=== PATIENT | male | born 1945 | race Caucasian/White ===

== ENCOUNTER 2019-02-28 14:49 | Emergency (ER) | payer MEDICARE ==
[~2019-02-28] VITALS: Ht 167.6 cm; Wt 89.4 kg
--- OUTSIDE RECORDS SUMMARY | ~2019-02-28 | XMS | Clinical Summary ---
Demographics + + + | Address | [address] | | | [place] [address] | + + + | Home Phone | | + + + | Preferred Language | Unknown | + + + | Marital Status | | + + + | Judaism Affiliation | Unknown | + + + | Race | Unknown | + + + | Ethnic Group | Unknown | + + + Author + + + | Author | [facility] | + + + | Organization | [facility] | + + + | Address | Unknown | + + + | Phone | Unavailable | + + + Support + + +---------+ + | Name | Relationship | Address | Phone | + + +---------+ + | Tenisha Shetty | ECON | Unknown | | + + +---------+ + Care Team Providers + +------+ + | Care Field Identification Specialist Name | Role | Phone | + +------+ + | Radhames Constantino MD | PP | Unavailable | + +------+ + Allergies + + + + + + | Active Allergy | Reactions | Severity | Noted | Comments | | | | | Date | | + + + + + + | Atorvastatin | Vertigo | Medium | 01/07/20 | Dizziness and leg | | | | | 15 | cramps | + + + + + + | Adhesive Tape | Other (See Comments) | High | 08/10/20 | Blisters with | | | | | 13 | surgical tape | + + + + + + Current Medications + + +-------+---------+------+------+-------+ | Prescription | Sig. | Disp. | Refills | Star | End | Statu | | | | | | t | Date | s | | | | | | Date | | | + + +-------+---------+------+------+-------+ | | Take 12.5 mg by | | | | | Activ | | hydrochlorothiazide | mouth daily. | | | | | e | | (HYDRODIURIL) 25 MG | | | | | | | | tablet | | | | | | | + + +-------+---------+------+------+-------+ | amLODIPine | Take 5 mg by mouth | | | | | Activ | | (NORVASC) 5 MG | daily. | | | | | e | | tablet | | | | | | | + + +-------+---------+------+------+-------+ | oxybutynin | Take 15 mg by mouth | | | | | Activ | | (DITROPAN XL) 15 MG | daily as needed. | | | | | e | | 24 hr tablet | | | | | | | + + +-------+---------+------+------+-------+ | omeprazole | Take 20 mg by mouth | | | | | Activ | | (PRILOSEC) 20 MG | every morning before | | | | | e | | capsule | breakfast. | | | | | | + + +-------+---------+------+------+-------+ | tadalafil (CIALIS) | Take 5 mg by mouth | | | | | Activ | | 5 MG tablet | as needed. | | | | | e | + + +-------+---------+------+------+-------+ | fish oil-omega-3 | Take by mouth | | | | | Activ | | fatty acids 1000 MG | daily. | | | | | e | | capsule | | | | | | | + + +-------+---------+------+------+-------+ | Multiple | Take 1 tablet by | | | | | Activ | | Vitamins-Minerals | mouth daily. | | | | | e | | (MULTIVITAMIN WITH | | | | | | | | MINERALS) tablet | | | | | | | + + +-------+---------+------+------+-------+ | Multiple | Take 1 tablet by | | | | | Activ | | Vitamins-Minerals | mouth daily. | | | | | e | | (OCUVITE ADULT | | | | | | | | FORMULA PO) | | | | | | | + + +-------+---------+------+------+-------+ | Simethicone (GAS-X | Take 1 tablet by | | | | | Activ | | PO) | mouth daily. | | | | | e | + + +-------+---------+------+------+-------+ | atenolol | Take 50 mg by mouth | | | | | Activ | | (TENORMIN) 50 MG | daily. | | | | | e | | tablet | | | | | | | + + +-------+---------+------+------+-------+ | aspirin EC 81 MG | Take 81 mg by mouth | | | | | Activ | | EC tablet | daily. | | | | | e | + + +-------+---------+------+------+-------+ | doxycycline | Take 50 mg by mouth | | | | | Activ | | (MONODOX) 50 MG | 2 (two) times daily. | | | | | e | | capsule | | | | | | | + + +-------+---------+------+------+-------+ | clindamycin | Apply topically 2 | | | | | Activ | | (CLEOCIN T) 1 % | (two) times daily. 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 | + + +------+ + | COPD | Mother | chf | | + + +------+ + | Heart disease | Mother | chf | | + + +------+ + + +------+ + + | Relation | Name | Status | Comments | + +------+ + + | Brother | | | | + +------+ + + | Father | | | | + +------+ + + | Mother | chf | | | + +------+ + + Social History + +-------+ +--------+ + | Tobacco Use | Types | Packs/Day | Years | Date | | | | | Used | | + +-------+ +--------+ + | Former Smoker | | 1 | 30 | Quit: 11/22/1991 | + +-------+ +--------+ + + +---+---+---+ | Smokeless Tobacco: | | | | | Never Used | | | | + +---+---+---+ + + | Comments: quit 1991 | + + + + +---------+ + | Alcohol Use | Drinks/We | oz/Week | Comments | | | ek | | | + + +---------+ + | Yes | | | 2 glasses or wine a day average | + + +---------+ + + + + | Sex Assigned at | Date Recorded | | | | + + + | Not on file | | + + + Last Filed Vital Signs + + + + | Vital Sign | Reading | Time Taken | + + + + | Blood Pressure | 120/60 | 04/27/2018 1:22 PM PDT | + + + + | Pulse | 60 | 04/27/2018 1:22 PM PDT | + + + + | Temperature | 36.7 C (98 F) | 12/19/2013 11:10 AM PST | + + + + | Respiratory Rate | 16 | 04/27/2018 1:22 PM PDT | + + + + | Oxygen Saturation | 98% | 04/27/2018 1:22 PM PDT | + + + + | Inhaled Oxygen | - | - | | Concentration | | | + + + + | Weight | 85.3 kg (188 lb) | 04/27/2018 1:22 PM PDT | + + + + | Height | 175.3 cm (5' 9") | 04/27/2018 1:22 PM PDT | + + + + | Body Mass Index | 27.76 | 04/27/2018 1:22 PM PDT | + + + + Plan of Treatment +--------+---------+ + + + | Date | Type | Specialty | Care Team | Description | +--------+---------+ + + + | 05/01/ | Office | | Nimesh Hewitt MD | | | 2019 | Visit | | [address] | | | | | | [place] [address] | | | | | | [phone] | | | | | | | | +--------+---------+ + + + + + + + + | Health Maintenance | Due Date | Last Done | Comments | + + + + + | Vaccine: | | | | | Dtap/Tdap/Td (1 - | 3 | | | | Tdap) | | | | + + + + + | Colon Cancer | | | | | Screening | 4 | | | | (Colonoscopy) | | | | + + + + + | Vaccine: Zoster (1 | | | | | of 2) | 4 | | | + + + + + | Vaccine: | | | | | Pneumococcal 65+ | 9 | | | | Low/Medium Risk (1 | | | | | of 2 - PCV13) | | | | + + + + + | Vaccine: Influenza | | | | | (Season Ended) | 9 | | | + + + + + Implants + +------+-------+ +--------+--------+--------+ | Implanted | Type | Area | Manufacture | Device | Expira | Model | | | | | r | | tion | / | | | | | | Identi | Date | Serial | | | | | | fier | | / Lot | + +------+-------+ +--------+--------+--------+ | Pacing Wire Dual | | N/A: | | | 08/22/ | 030-00 | | 030-005 - | | Heart | | | 2016 | 5 | | [id number]: Qty: 1 on | | | | | | /[id number] | | 08/10/2013 by Shmuel Sierra, | | | | | | 155 | | MD | | | | | | | + +------+-------+ +--------+--------+--------+ Results Not on filefrom Last 3 Months Insurance + +--------+ +------+-------+ + | Payer | Benefi | Subscriber | Type | Phone | Address | | | t Plan | ID | | | | | | / | | | | | | | Group | | | | | + +--------+ +------+-------+ + | MEDICARE | MEDICA | [id number] | | | [address] | | | RE | | | | [place] [address] | | | IP-OP | | | | | + +--------+ +------+-------+ + | UNITED HEALTHCARE | UNITED | [id number] | | | | | | | | | | | | | HEALTH | | | | | | | CARE - | | | | | | | AARP | | | | | + +--------+ +------+-------+ + + +--------+ +--------+ + + | Guarantor Name | Accoun | Relation to | Date | Phone | Billing Address | | | t Type | Patient | of | | | | | | | | | | + +--------+ +--------+ + + | MAREN ROE | Person | Self [birth year] Home: | [address] | | [place] | [address] | | 1945 | [phone] | [place] | | | [place] | | | [phone] | + +--------+ +--------+ + +
--- OUTSIDE RECORDS SUMMARY | ~2019-02-28 | XMS | Clinical Summary ---
Demographics + + + | Address | [address] | | | [place] [address] | + + + | Home Phone | | + + + | Preferred Language | Unknown | + + + | Marital Status | | + + + | Tenriism Affiliation | Unknown | + + + | Race | Unknown | + + + | Ethnic Group | Unknown | + + + Author + + + | Author | [facility] | | | and [place] | + + + | Organization | [facility] | | | and [...] Team Providers + +------+ + | Care Cutting Inspector Name | Role | Phone | + +------+ + | Radhames Constantino MD | PP | Unavailable | + +------+ + Allergies + + + + + + | Active Allergy | Reactions | Severity | Noted | Comments | | | | | Date | | + + + + + + | Atorvastatin | Other (See Comments) | | 09/27/20 | Dizziness and leg | | | | | 15 | cramps | + + + + + + | Adhesive & Tape | Other (See Comments) | Medium | 09/23/20 | Foam tape & | | | | | 15 | Tegaderm cause | | | | | | blisters | + + + + + + Medications + + + +---------+------+------+-------+ | Medication | Sig | Dispensed | Refills | Star | End | Statu | | | | | | t | Date | s | | | | | | Date | | | + + + +---------+------+------+-------+ | atenolol | Take 50 mg by mouth | | 0 | | | Activ | | (TENORMIN) 50 mg | Daily. | | | | | e | | tablet | | | | | | | + + + +---------+------+------+-------+ | | Take 12.5 mg by | | 0 | | | Activ | | hydrochlorothiazide | mouth Daily. | | | | | e | | 25 mg tablet | | | | | | | + + + +---------+------+------+-------+ | amLODIPine | Take 5 mg by mouth | | 0 | | | Activ | | (NORVASC) 5 mg | Daily. | | | | | e | | tablet | | | | | | | + + + +---------+------+------+-------+ | oxybutynin | Take 15 mg by mouth | | 0 | | | Activ | | (DITROPAN XL) 15 MG | Daily. | | | | | e | | 24 hr tablet | | | | | | | + + + +---------+------+------+-------+ | omeprazole | Take 20 mg by mouth | | 0 | | | Activ | | (PRILOSEC) 20 mg | every morning | | | | | e | | capsule | (before breakfast). | | | | | | + + + +---------+------+------+-------+ | tadalafil (CIALIS) | Take 5 mg by mouth | | 0 | | | Activ | | 5 MG tablet | as needed for | | | | | e | | | Erectile | | | | | | | | Dysfunction. | | | | | | + + + +---------+------+------+-------+ | fish oil 1,000 mg | Take 1,000 mg by | | 0 | | | Activ | | capsule | mouth Daily. | | | | | e | + + + +---------+------+------+-------+ | simethicone | Take 80 mg by mouth | | 0 | | | Activ | | (MYLICON) 80 mg | every 6 hours as | | | | | e | | chewable tablet | needed for | | | | | | | | Flatulence. | | | | | | + + + +---------+------+------+-------+ | Multiple | Take 1 tablet by | | 0 | | | Activ | | Vitamins-Minerals | mouth Daily. | | | | | e | | (COMPLETE | | | | | | | | MULTIVITAMIN/MINERAL | | | | | | | | PO) | | | | | | | + + + +---------+------+------+-------+ | doxycycline | | | 0 | 11/2 | | Activ | | (MONODOX) 50 MG | | | | 5/20 | | e | | capsule | | | | 16 | | | + + + +---------+------+------+-------+ Active Problems + + + | Problem | Noted Date | + + + | S/P lumbar fusion | 05/05/2016 | + + + | Class I, BMI 30-34.9 | 10/11/2015 | + + + | S/P CABG x 2V | 10/11/2015 | + + + | Lumbar radiculopathy/neurogenic claudication | 03/27/2015 | + + + | Spinal stenosis, lumbar | 03/27/2015 | + + + | Sacralization of lumbar vertebra | 03/27/2015 | + + + | Facet arthritis of lumbar region | 03/27/2015 | + + + | Spondylolisthesis | 03/27/2015 | + + + | Hypertension | | + + + | GERD (gastroesophageal reflux disease) | | + + + | Abnormal heart rhythm | | + + + | Poor circulation | | + + + | Myocardial infarction | | + + + | Hard of hearing | | + + + + + | Overview: has hearing aids, but doesn't wear them | + + Family History + + + + + | Medical History | Relation | Name | Comments | + + + + + | Alcohol abuse | Brother | Erick | | + + + + + | Cancer | Brother | Erick | | + + + + + | Arthritis | Father | | | + + + + + | Obesity | Maternal | Lizeth | | | | Grandmoth | | | | | er | | | + + + + + | Heart disease | Maternal | Stefan | | | | Uncle | | | + + + + + | Brain aneurysm | Maternal | Ravi | | | | Uncle | | | + + + + + | Early | Maternal | [place] | | | | Uncle | | | + + + + + | COPD | Mother | Sarah | | + + + + + | Emphysema | Mother | Sarah | | + + + + + | Heart disease | Mother | Sarah | | + + + + + | Hypertension | Mother | Sarah | | + + + + + | Tuberculosis | Paternal | Jose Angel | | | | Uncle | | | + + + + + + + + + + | Relation | Name | Status | Comments | + + + + + | Brother | Benjamine | Alive | | + + + + + | Brother | Erick | | Cancer | | | | (Age | | | | | 68) | | + + + + + | Father | | | | | | | (Age | | | | | 84) | | + + + + + | Maternal Aunt | Sybil | | | | | Dang | (Age | | | | | 82) | | + + + + + | Maternal Grandfather | Gene | | | | | | (Age | | | | | 72) | | + + + + + | Maternal Grandmother | Lizeth | | Obesity | | | | (Age | | | | | 59) | | + + + + + | Maternal Uncle | Stefan | | Heart | | | | (Age | | | | | 56) | | + + + + + | Maternal Uncle | Ravi | | | + + + + + | Maternal Uncle | Benjamine | | Brain aneurysm | | | | (Age | | | | | 55) | | + + + + + | Maternal Uncle | Ramirez | | Accident | | | | (Age | | | | | 39) | | + + + + + | Mother | Sarah | | Pneumonia | | | | (Age | | | | | 72) | | + + + + + | Paternal Aunt | Amisha | | | + + + + + | Paternal Grandfather | Stefan | | | | | | (Age | | | | | 77) | | + + + + + | Paternal Grandmother | Winne | | | | | | (Age | | | | | 90) | | + + + + + | Paternal Uncle | Erick | | | | | | (Age | | | | | 74) | | + + + + + | Paternal Uncle | John | | | | | | (Age | | | | | 83) | | + + + + + | Paternal Uncle | Wallace | | | | | | (Age | | | | | 75) | | + + + + + | Paternal Uncle | Jose Angel | | TB | | | | (Age | | | | | 36) | | + + + + + | Son | Ty Lappen | Alive | | + + + + + Social History + + [...] | | | + +------+---+---+ + + +---------+ + | Alcohol Use | Drinks/We | oz/Week | Comments | | | ek | | | + + +---------+ + | Yes | 3 | | Frequently (more than twice per week) | | | Glasses | | | | | of wine | | [...] recent travel history available. | + + Last Filed Vital Signs + + + + | Vital Sign | Reading | Time Taken | + + + + | Blood Pressure | 125/73 | 11/19/20161412 PST | + + + + | Pulse | 63 | 11/19/20161412 PST | + + + + | Temperature | 37.3 C (99.1 F) | 10/16/2015699 PST | + + + + | Respiratory Rate | 15 | 05/05/2016 1553 PDT | + + + + | Oxygen Saturation | 94% | 10/16/2015699 PST | + + + + | Inhaled Oxygen | - | - | | Concentration | | | + + + + | Weight | 86.2 kg (190 lb) | 11/19/20161412 PST | + + + + | Height | 172.7 cm (5' 8") | 11/19/20161412 PST | + + + + | Body Mass Index | 28.89 | 11/19/20161412 PST | + + + + Plan of Treatment + + + + + | Health [...] + + + | Vaccine: | | 09/22/2017 | | | Pneumococcal 65+ | 8 | | | | Low/Medium Risk (2 | | | | | of 2 - PCV13) | | | | + + + + + | Vaccine: Influenza | | | | | (Season Ended) | 9 | | | + + + + + Implants + +------+--------+ +--------+--------+--------+ | Implanted | Type | Area | Manufacture | Device | Shelf | Model | | | | | r | | Expira | / | | | | | | Identi | tion | Serial | | | | | | fier | Date | / Lot | + +------+--------+ +--------+--------+--------+ | Graft Infuse Bone Kit Xxs - | | Left: | ELEAMOR | | 04/21/ | [id number] | | [id number]: Qty: 1 on | | Back | DANEK - DIV | | 2016 | 0 / | | 10/14/2015 by Eric Gonzales, | | | [employer] | | | /[id number] | | MD | | | - SFDK | | | [id number] | + +------+--------+ +--------+--------+--------+ | Algrft Putty [place] 5cc Dbm | | Left: | OSTEOTECH - | | 06/10/ | [id number] | | - [id number]: Qty: | | Back | OSTT | | 2017 | /[id number] | | 1 on 10/14/2015 by Eric Gonzales | | | | | | 5-057 | | MD Mane | | | | | | / | + +------+--------+ +--------+--------+--------+ | Chips Cancellous 15cc - | | Left: | OSTEOTECH - | | 03/11/ | [id number] | | [id number]: Qty: 1 | | Back | OSTT | | 2019 | | | on 10/14/2015 by Eric Gonzales | | | | | | /[id number] | | MD Mane | | | | | | 9-045 | | | | | | | | / | + +------+--------+ +--------+--------+--------+ | Imp Spn Intbdy Xlw | | Left: | NUVASIVE - | | | [id number] | | [id number] | | Back | NVSV | | | 5 / / | | [id number]: Qty: 1 on | | | | | | | | 10/14/2015 by Eric Gonzales, | | | | | | | | MD | | | | | | | + +------+--------+ +--------+--------+--------+ | Screw Polyax Prcpt 7.5x50mm - | | Left: | NUVASIVE - | | | [id number] | | [id number]: Qty: 4 | | Back | NVSV | | | 0A / / | | on 10/14/2015 by Eric Gonzales | | | | | | | | A, MD | | | | | | | + +------+--------+ +--------+--------+--------+ | Jd Ti Prebent Lordtc 45mm - | | Left: | NUVASIVE - | | | [id number] | | [id number]: Qty: 2 on | | Back | NVSV | | | 5 / / | | 10/14/2015 by Eric Gonzales, | | | | | | | | MD | | | | | | | + +------+--------+ +--------+--------+--------+ | Screw Set - | | Left: | NUVASIVE - | | | [id number] | | [id number]: Qty: 4 on | | Back | NVSV | | | 0 / / | | 10/14/2015 by Eric Gonzales, | | | | | | | | MD | | | | | | | + +------+--------+ +--------+--------+--------+ Results Not on filefrom Last 3 Months Insurance + +--------+ +--------+ +---------+--------+ | Payer | Benefi | Subscriber | Effect | Phone | Address | Type | | | t Plan | ID | maria elena | | | | | | / | | Dates | | | | | | Group | | | | | | + +--------+ +--------+ +---------+--------+ | MEDICARE | MEDICA | [id number] | | [phone] | | Medica | | | RE | | 009-Pr | 5 | | re | | | PART A | | esent | | | | | | AND B | | | | | | + +--------+ +--------+ +---------+--------+ | AARP | AARP | [id number] | 11/22/19 | [phone] | | Indemn | | | HEALTH | | 12-Pre | 0 | | ity | | | CARE | | sent | | | | | | OPTION | | | | | | | | [place] | | | | | | | | [place] | | | | | | + +--------+ +--------+ +---------+--------+ + +--------+ +--------+ + + | Guarantor Name | Accoun | Relation to | Date | Phone | Billing Address | | | t Type | Patient | of | | | | | | | | | | + +--------+ +--------+ + + | Jc Mejia | Person | Self [birth year] | [address] | | [place] | al/Fam | | 1945 | [phone] | [place] | | | [place] | | | [address] ([place]) | [phone] | + +--------+ +--------+ + + Advance Directives Patient has advance care planning documents, and code status on file. For more information, please contact:[facility] [place] [phone] + + + + + | Code Status | Date | Date | Comments | | | Activated | Inactivated | | + + + + + | Full Code | 10/14/2015 | 10/16/2015 | | | | 15:34 | 13:13 | | + + + + +
--- OUTSIDE RECORDS SUMMARY | ~2019-02-28 | XMS | Clinical Summary ---
Demographics + + + | Address | [address] | | | [place] [address] | + + + | Home Phone | | + + + | Preferred Language | Unknown | + + + | Marital Status | | + + + | Baptist Affiliation | Unknown | + + + | Race | Unknown | + + + | Ethnic Group | Unknown | + + + Author + + + | Author | [facility] | | | and [place] | + + + | Organization | [facility] | | | [...] Team Providers + +------+ + | Care Cone Cleaner Name | Role | Phone | + [...] + + | Obesity | Maternal | Ilzeth | | | | Grandmoth | | [...] + + | Early | Maternal | [place] | | | | Uncle | | [...] Left: | ELEAMOR | | 04/21/ | [id number] | | [id number]: Qty: 1 on | | Back | DANEK - DIV | | 2016 | 0 / | | 10/14/2015 by Eric Gonzales, | | | [employer] | | | /[id number] | | MD | | | - SFDK | | | [id number] | + +------+--------+ +--------+--------+--------+ | Algrft Putty [place] 5cc Dbm | | Left: | OSTEOTECH - | | 06/10/ | [id number] | | - [id number]: Qty: | | Back | OSTT | | 2017 | [id number] | | 1 on 10/14/2015 by Eric Gonzales | | | | | | [id number] | | MD Mane | | | | | | / | + +------+--------+ +--------+--------+--------+ | Chips Cancellous 15cc - | | Left: | OSTEOTECH - | | 03/11/ | [id number] | | [id number]: Qty: 1 | | Back | OSTT | | 2019 | | | on 10/14/2015 by Eric Gonzales | | | | | | /[id number] | | MD Mane | | | | | | 9-045 | | | | | | | | / | + +------+--------+ +--------+--------+--------+ | Imp Spn Intbdy Xlw | | Left: | NUVASIVE - | | | [id number] | | [id number] | | Back | NVSV | | | 5 / / | | [id number]: Qty: 1 on | | | | | | | | 10/14/2015 by Eric Gonzales, | | | | | | | | MD | | | | | | | + +------+--------+ +--------+--------+--------+ | Screw Polyax Prcpt 7.5x50mm - | | Left: | NUVASIVE - | | | [id number] | | [id number]: Qty: 4 | | Back | NVSV | | | 0A / / | | on 10/14/2015 by Eric Gonzales | | | | | | | | A, MD | | | | | | | + +------+--------+ +--------+--------+--------+ | Jd Ti Prebent Lordtc 45mm - | | Left: | NUVASIVE - | | | [id number] | | [id number]: Qty: 2 on | | Back | NVSV | | | 5 / / | | 10/14/2015 by Eric Gonzales, | | | | | | | | MD | | | | | | | + +------+--------+ +--------+--------+--------+ | Screw Set - | | Left: | NUVASIVE - | | | [id number] | | [id number]: Qty: 4 on | | Back | [...] +--------+ +---------+--------+ | MEDICARE | MEDICA | [id number] | | [phone] | | Medica | | | RE | | 009-Pr | 5 | | re | | | PART A | | esent | | | | | | AND B | | | | | | + +--------+ +--------+ +---------+--------+ | AARP | AARP | [id number] | 11/22/19 | [phone] | | Indemn [...] Person | Self | [birth year] | | [address] | | [place] | al/Fam | | 1945 | [phone] | [place] | | | [place] | | | 3 ([place]) | [phone] | + +--------+ +--------+ + + Advance Directives Patient has advance care planning documents, and code status on file. For more information, please contact:[facility] [place] [phone] + + + + + | Code Status | Date | Date | Comments | | | Activated | Inactivated | | + + + + + | Full Code | 10/14/2015 | 10/16/2015 | | | | 15:34 | 13:13 | | + + + + +
--- OUTSIDE RECORDS SUMMARY | ~2019-02-28 | XMS | Clinical Summary ---
Demographics + + + | Address | [address] | | | [place] [address] | + + + | Home Phone | | + + + | Preferred Language | Unknown | + + + | Marital Status | | + + + | Jew Affiliation | Unknown | + + + | Race | Unknown | + + + | Ethnic Group | Unknown | + + + Author + + + | Author | [facility] | + + + | Organization | [facility] | + + + | Address | Unknown | + + + | Phone | Unavailable | + + + Support + + +---------+ + | Name | Relationship | Address | Phone | + + +---------+ + | Tenisha Shetty | ECON | Unknown | | + + +---------+ + Care Team Providers + +------+ + | Care Hand Tube Bender Name | Role | Phone | + [...] | + + + | CAD in [place] artery | 02/03/2017 | + + [...] [address] | | | | | | [place] [address] | | | | | | [phone] | | | | | | | [...] | | 2016 | 5 | | [id number]: Qty: 1 on | | | | | | /[id number] | | 08/10/2013 by Shmuel Sierra, | [...] +------+-------+ + | MEDICARE | MEDICA | [id number] | | | [address] | | | RE | | | | [place] [phone] | | | IP-OP | | | | | + +--------+ +------+-------+ + | [employer]ARE | UNITED | [id number] | | | | | | | [...] Self | [birth year] | Home: | [address] | | [place] | al/Rj | | 1945 | [phone] [place] | | | shaheed | | | [phone] | + +--------+ +--------+ + +
--- OUTSIDE RECORDS SUMMARY | ~2019-02-28 | XMS | Clinical Summary ---
Demographics + + + | Address | [address] | | | [place] [address] | + + + | Home Phone | | + + + | Preferred Language | Unknown | + + + | Marital Status | Single | + + + | Yazdanism Affiliation | Unknown | + + + | Race | Unknown | + + + | Ethnic Group | Other Race | + + + Author + + + | Author | [facility] | + + + | Organization | [facility] | + + + | Address | Unknown | + + + | Phone | Unavailable | + + + Care Team Providers + +------+ + | Care Clinical Account Manager Name | Role | Phone | + +------+ + PP | Unavailable | + +------+ + Source Comments EDEL is fully live on both [facility] Ambulatory and [facility] InPatient.[facility] Allergies Not on File Current Medications Not on file Active Problems Not [...] on file | | + + + Plan of Treatment + + + + + | Health Maintenance | Due Date | Last Done | Comments | + + + + + | Pneumococcal (Adult) | | | | | (1 of 2 - PCV13) | 9 | | | + + + + + | Influenza (Flu) | | | | | vaccination (#1) | 8 | | | + + + + + Results Not on filefrom Last 3 Months Insurance + +--------+ +------+-------+---------+ | Payer | Benefi | Subscriber | Type | Phone | Address | | | t Plan | ID | | | | | | / | | | | | | | Group | | | | | + +--------+ +------+-------+---------+ | UHC MEDICARE | UHC | xxxxxxxxx | HMO | | | | COMPLETE HMO | MEDICA | | | | | | | RE | | | | | | | COMPLE | | | | | | | TE HMO | | | | | + +--------+ +------+-------+---------+ + +--------+ +--------+ + + | Guarantor Name | Accoun | Relation to | Date | Phone | Billing Address | | | t Type | Patient | of | | | | | | | | | | + +--------+ +--------+ + + | MAREN ROE | Person | Self [birth year] Home: | [address] | | | al/Fam | | 1945 | [phone] | [place] | | | shaheed | | | [phone] | [phone] | + +--------+ +--------+ + +"
--- OUTSIDE RECORDS SUMMARY | ~2019-02-28 | XMS | Clinical Summary ---
Demographics + + + | Address | [address] | | | [place] [address] | + + + | Home Phone | | + + + | Preferred Language | Unknown | + + + | Marital Status | Single | + + + | Scientologist Affiliation | Unknown | + + + | Race | Unknown | + + + | Ethnic Group | Other Race | + + + Author + + + | Author | [facility] | + + + | Organization | [facility] | + + + | Address | Unknown | + + + | Phone | Unavailable | + + + Care Team Providers + +------+ + | Care Hosiery Mender Name | Role | Phone | + +------+ + PP | Unavailable | + +------+ + Source Comments EDEL is fully live on both [facility] Ambulatory and [facility] InPatient.[facility] Allergies Not on File Current Medications Not [...] Self | [birth year] | Home: | [address] | | | al/Fam | | 1945 | [phone] | [place] | | | [place] | | | [phone] | [phone] | + +--------+ +--------+ + +"
[~2019-02-28 14:49] MED LIST: AMLODIPINE BESYL5 MG PO; ASPIR 8181 MG PO; ATENOLOL25 MG PO; CIALIS5 MG PO; CLEOCIN HCL300 MG PO; FISH OIL500 MG PO; GAS RELIEF80 MG PO; HYDROCHLOROTHIA25 MG PO; MULTI VITAMIN1 EACH PO; NITROGLYCERIN0.4 MG SL; OCUVITE TABLET1 EAC1 PO; OMEPRAZOLE20 M1 PO; OXYBUTYNIN CHLO15 MG PO; POTASSIUM CHLO20 ME1 PO
== END 2019-02-28 16:11 | disposition home or self-care (01) ==
LOC: ED 14:49
DX: M79.621 Pain in right upper arm (principal)

== ENCOUNTER 2019-05-15 11:54 | Emergency (ER) | payer MEDICARE ==
[~2019-05-15] VITALS: Ht 172.7 cm; Wt 83.5 kg
[2019-05-15] MEDS ORDERED: AMLODIPINE BESY10 MG PO (12:05)
[2019-05-15] MEDS ORDERED: ATENOLOL50 MG PO (12:05)
[2019-05-15] MEDS ORDERED: ROSUVASTATIN CAL5 MG PO (12:05)
[2019-05-15] MEDS ORDERED: EPIPEN 2-P0.3 MG/0.3 IM (13:54)
--- NOTE | 2019-05-16 08:09 | EKG ---
[facility] [address] [facility] [address] [facility] [place] [address] Signed Normal sinus rhythm Inferior infarct , age undetermined T wave abnormality, consider anterior ischemia Abnormal ECG No previous ECGs available Confirmed by CASPER MATTHEWS MD ([id number]) on 05/16/2019 8:09:33 AM Electronically Signed By: CASPER MATTHEWS MD 05/16/19 0809 PATIENT NAME: MAREN ROE Electrocardiogram DATE OF : 43 PHYSICIAN: CASPER MATTHEWS MD REPORT #: [id number] REPORT IS CONFIDENTIAL AND NOT TO BE RELEASED WITHOUT AUTHORIZATION
== END 2019-05-15 14:07 | disposition home or self-care (01) ==
LOC: ED 11:54
DX: T63.441A Toxic effect of venom of bees, accidental (unintentional), initial encounter (principal); Z87.891 Personal history of nicotine dependence; Z88.8 Allergy status to other drugs, medicaments and biological substances; Z79.899 Other long term (current) drug therapy
CPT/HCPCS: 71045; 80053; 84484; 85025; 93005; 93010; 96361; 96374; 99285-25; J0171; J1100; J7030

== ENCOUNTER 2019-08-28 19:07 | Emergency (ER) | payer MEDICARE ==
[~2019-08-28] VITALS: Ht 172.7 cm; Wt 83.5 kg
--- OUTSIDE RECORDS SUMMARY | ~2019-08-28 | XMS | Encounter Summary ---
Demographics + + + | Address | [address] | | | [place] [address] | + + + | Home Phone | | + + + | Preferred Language | Unknown | + + + | Marital Status | | + + + | Samaritan Affiliation | Unknown | + + + | Race | Unknown | + + + | Ethnic Group | Unknown | + + + Author + + + | Author | [facility] | | | and [place] | + + + | Organization | [facility] | | | and [place] | + + + | Address | Unknown | + + + | Phone | Unavailable | + + + Support + + +---------+ + | Name | Relationship | Address | Phone | + + +---------+ + | Kenton Mejia | ECON | Unknown | | + + +---------+ + | Tenisha Shetty | ECON | Unknown | | + + +---------+ + Care Team Providers + +------+ + | Care Sales Manager Name | Role | Phone | + +------+ + | Radhames Constantino MD | PCP | Unavailable | + +------+ + Reason for Visit Auth/Cert +--------+--------+ + + + + | Status | Reason | Specialty | Diagnoses / | Referred By | Referred To | | | | | Procedures | Contact | Contact | +--------+--------+ + + + + | | | | Diagnoses | | Romie | | | | | Rupture of | | Rico Landry MD | | | | | biceps | | [address] | | | | | tendon, | | [place] | | | | | right, | | [place], [place] | | | | | sequela | | [phone] | | | | | Procedures | | Phone: | | | | | ID REINSERT | | [phone] | | | | | BI/TRICEPS | | Fax: | | | | | TENDON,DISTA | | [phone] | | | | | L Right | | | | | | | distal | | | | | | | biceps | | | | | | | tendon | | | | | | | repair with | | | | | | | possible | | | | | | | allograft | | | +--------+--------+ + + + + Encounter Details +--------+ + + + + | Date | Type | Department | Care Team | Description | +--------+ + + + + | 07/25/ | Anesthesia | [facility] | Mario Hernandez | | | 2019 | Event | [facility] | DO [address] | | | | | [address] | [address] [place] | | | | | [place], [place] | [place] [address] | | | | | [address] | | | | | | [phone] | | | +--------+ + + + + Anesthesia Record + + + + + | Procedure Name | Responsible | Anesthesia Start | Anesthesia Stop Time | | | Anesthesiologist | Time | | + + + + + | Right distal biceps | [address] | 07/25/19 0950 | 07/25/19 1206 | | tendon repair with | DO David | | | | possible allograft | | | | | (Right Arm Upper) | | | | + + + + + +----+---+ + + | Da | T | Event | Comment | | te | i | | | | | m | | | | | e | | | +----+---+ + + | 09 | 0 | | | | /0 | 9 | | | | 3/ | 3 | | | | 20 | 7 | | | | 19 | | | | +----+---+ + + | | 0 | An Checkout | Pre-use anesthesia machine/equipment checkout. | | | 9 | | | | | 3 | | | | | 7 | | | +----+---+ + + | | 0 | Block Start | | | | 9 | | | | | 3 | | | | | 8 | | | +----+---+ + + | | 0 | AN Block | | | | 9 | End | | | | 4 | | | | | 5 | | | +----+---+ + + | | 0 | An Start | Reassessment prior to anesthesia induction/procedure. | | | 9 | | | | | 5 | | | | | 0 | | | +----+---+ + + | | 0 | An Start | | | | 9 | Data | | | | 5 | | | | | 2 | | | +----+---+ + + | | 0 | Preoxygenat | | | | 9 | ed | | | | 5 | | | | | 4 | | | +----+---+ + + | | 0 | An | | | | 9 | Induction | | | | 5 | | | | | 5 | | | +----+---+ + + | | 0 | An | | | | 9 | Intubation | | | | 5 | | | | | 7 | | | +----+---+ + + | | 0 | AN Bite | | | | 9 | Block | | | | 5 | | | | | 7 | | | +----+---+ + + | | 0 | Anesthesia | | | | 9 | Ready | | | | 5 | | | | | 7 | | | +----+---+ + + | | 0 | Antibiotic | | | | 9 | Given | | | | 5 | | | | | 7 | | | +----+---+ + + | | 1 | Pre-Procedu | | | | 0 | ral Timeout | | | | 0 | Completed | | | | 8 | | | +----+---+ + + | | 1 | [place] | | | | 0 | 43-degrees | | | | 0 | | | | | 8 | | | +----+---+ + + | | 1 | First | | | | 0 | Inc/Proc St | | | | 1 | | | | | 2 | | | +----+---+ + + | | 1 | [place] off | | | | 1 | | | | | 5 | | | | | 3 | | | +----+---+ + + | | 1 | Oropharynx | | | | 1 | Suctioned | | | | 5 | | | | | 3 | | | +----+---+ + + | | 1 | Extubation/ | | | | 1 | Airway LDA | | | | 5 | Removal | | | | 4 | | | +----+---+ + + | | 1 | an stop | | | | 1 | data | | | | 5 | | | | | 6 | | | +----+---+ + + | | 1 | An Stop | Patient handed off to recovery nurse. | | | 0 | | | | | 6 | | | +----+---+ + + +------+ | Meds | +------+ + + + | Name | Total | + + + | fentaNYL | 100 mcg | + + + | lidocaine 2% | 100 mg | + + + | lidocaine 2% | 5 mL | + + + | propofol | 100 mg | + + + | ePHEDrine (AKOVAZ) injection 50 | 20 mg | | mg/mL | | + + + | ondansetron | 4 mg | + + + | dexamethasone (PF) injection 10 | 10 mg | | mg/mL | | + + + | ropivacaine 0.5% | 15 mL | + + + | ceFAZolin (ANCEF, KEFZOL) 100 | 2 g | | mg/mL IV syringe 2 g | | + + + | lactated ringers (LR) infusion | 1,400 mL | + + + + + | Name | + + | N2O Flow Rate (L/Min) | + + | O2 Flow Rate (L/Min) | + + | Insp O2 | + + | Exp SEV | + + | Air Flow Rate (L/Min) | + + + + | No blood administrations on file. | + + +--------+ + + + | Type | Details | Placement | Removal | +--------+ + + + | Wound | 07/25/19; 1034; Incision; Right; | 07/25/19 1034 by | | | | arm; ONE INCISION ANTERIOR, ONE | Rodrigo Wilson RN | | | | INCISION POSTERIOR | | | +--------+ + + + | Periph | 07/25/19; 0843; Left; | 07/25/19 0843 by | 07/25/19 1356 by | | eral | Antecubital; [id number] | Ashley Solo, ARLETTE | Mel Danielson RN | | IV | catheter system; 18 gauge, 1 1/2 | | | | | in length; Hematology; | | | | | distraction, tolerated well, | | | | | topical anesthetic spray applied, | | | | | appears comfortable; no longer | | | | | indicated, removed per | | | | | policy/procedure; 07/25/19; 1356 | | | +--------+ + + + | Airway | Placement Date: 07/25/19; | 07/25/19 0957 by | 07/25/19 1154 by | | | Placement Time: 956 (created via | [address] | [address] | | | procedure documentation); | David, DO | David, DO | | | Attempts: 1; Airway Type: | | | | | laryngeal mask; Size: 4; Trauma: | | | | | none; Placement Check: exhaled | | | | | CO2 detection device, bilateral | | | | | chest rise, breath sounds equal | | | | | bilaterally; Removal Date: | | | | | 07/25/19; Removal Time: 115 | | | +--------+ + + + documented in this encounter Social History + + + +--------+ + | Tobacco Use | Types | Packs/Day | Years | Date | | | | | Used | | + + + +--------+ + | Former Smoker | Cigarettes | 1 | 20 | 11/22/1971 - | | | | | | 11/22/1991 | + + + +--------+ + + +------+---+---+ | Smokeless Tobacco: | Chew | | | | Former User | | | | + +------+---+---+ + + | Comments: quit 1991 | + + + + +---------+ + | Alcohol Use | Drinks/We | oz/Week | Comments | | | ek | | | + + +---------+ + | Yes | 14 | 8.4 | Alcoholic Drinks/day: 2 glasses or wine a | | | Glasses | | day average | | | of wine | | | + + +---------+ + + + + | Sex Assigned at | Date Recorded | | | | + + + | Not on file | | + + + + + + + | Job Start Date | Occupation | Industry | + + + + | Not on file | Not on file | Not on file | + + + + + + + + | Travel History | Travel Start | Travel End | + + + + + + | No recent travel history available. | + + documented as of this encounter Plan of Treatment Not on filedocumented as of this encounter Results Nerve Block (07/25/2019 10:03 PDT) + + + | Narrative | Performed At | + + + | Mario Hernandez DO 07/25/2019 10:05 Perineural | | | Procedure Note 07/25/2019 9:45 Nerve block: | | | supraclavicular-brachial plexus Laterality: right Continuous block | | | with catheter: No Provider requested procedure: Gryler | | | Indication: postoperative analgesia Preprocedure check: patient | | | identified, procedure and rescue equipment checked, preevaluation | | | including airway assessment complete, risks/benefits discussed, | | | consent obtained, timeout performed, reassessment prior to procedure | | | and monitors applied Patient position: sitting Preparation: | | | chlorhexidine/isopropyl alcohol Technique: ultrasound Radiology | | | image stored in patient's chart: ultrasound Needle: echogenic Needle | | | size: 21 g Needle length: 4 in Medication administered through: | | | needle Negative findings: no blood aspirated, no paresthesia and no | | | air aspirated Total volume of local anesthetic solution administered: | | | 20 mL Attempts: 1 Ease of procedure: easy Comments: Under | | | ultrasound guidance, a 4 inch 21 gauge needle was inserted and | | | placed in close proximity to the brachial plexus nerve bundle. | | | Ultrasound was also used to visualize the spread of the anesthetic in | | | close proximity to the nerve being blocked. The nerve appeared | | | anatomically normal, and there were no apparent abnormal pathological | | | findings. The patient tolerated the procedure well and a permanent | | | ultrasound image was saved in the patient's record. | | | Please see anesthesia record or flowsheet for vital sign documentation | | | and see anesthesia record or MAR for additional medication | | | documentation. Performing provider: Mario Hernandez DO | | | | | + + + + + | Procedure Note | + + | Mario Hernandez, - 07/25/2019 1003 PDT Perineural Procedure Note07/25/2019 | | 9:45Nerve block: supraclavicular-brachial plexusLaterality: rightContinuous block with | | catheter: NoProvider requested procedure: GrylerIndication: postoperative | | analgesiaPreprocedure check: patient identified, procedure and rescue equipment checked, | | preevaluation including airway assessment complete, risks/benefits discussed, consent | | obtained, timeout performed, reassessment prior to procedure and monitors appliedPatient | | position: sittingPreparation: chlorhexidine/isopropyl alcoholTechnique: | | ultrasoundRadiology image stored in patient's chart: ultrasoundNeedle: echogenicNeedle | | size: 21 gNeedle length: 4 inMedication administered through: needleNegative findings: | | no blood aspirated, no paresthesia and no air aspiratedTotal volume of local anesthetic | | solution administered: 20 mLAttempts: 1Ease of procedure: easyComments: Under ultrasound | | guidance, a 4 inch 21 gauge needle was inserted and placed in close proximity to the | | brachial plexus nerve bundle. Ultrasound was also used to visualize the spread of the | | anesthetic in close proximity to the nerve being blocked. The nerve appeared | | anatomically normal, and there were no apparent abnormal pathological findings. The | | patient tolerated the procedure well and a permanent ultrasound image was saved in the | | patient's record. Please see anesthesia record or flowsheet for vital sign documentation | | and see anesthesia record or MAR for additional medication documentation.Performing | | provider: Mario Hernandez DO | |Attempts: 1 | |Ease of procedure: easy | | | |Comments: Under ultrasound guidance, a 4 inch 21 gauge needle was inserted and placed in cl ose proximity to the brachial plexus nerve bundle. Ultrasound was also used to visualize th e spread of the anesthetic in | |close proximity to the nerve being blocked. The nerve appeared anatomically normal, and the re were no apparent abnormal pathological findings. The patient tolerated the procedure well and a permanent ultrasound image was saved in the patient's record. | | | | | | | | | | | |Please see anesthesia record or flowsheet for vital sign documentation and see anesthesia r ecord or MAR for additional medication documentation. | | | | | |Performing provider: Mario Hernandez DO | + + Airway (07/25/2019 10:02 PDT) + + + | Narrative | Performed At | + + + | Mario Hernandez DO 07/25/2019 10:03 Anesthesia Airway | | | Placement 07/25/2019 9:57 Preprocedure check: patient identified, | | | suction, oxygen, airway equipment checked, airway assessed and | | | patient reassessment prior to induction Attempts: 1 Airway type: | | | laryngeal mask Size: 4 Trauma: none Tube placement verification: | | | bilateral chest rise, equal bilateral breath sounds and carbon | | | dioxide detection Performing provider: Mario Hernandez DO | | | Please see intraoperative grid for any additional medication | | | documentation. | | + + + + + | Procedure Note | + + | Mario Hernandez DO - 07/25/2019 1002 PDT Anesthesia Airway Placement07/25/2019 | | 9:57Preprocedure check: patient identified, suction, oxygen, airway equipment checked, | | airway assessed and patient reassessment prior to inductionAttempts: 1Airway type: | | laryngeal maskSize: 4Trauma: noneTube placement verification: bilateral chest rise, | | equal bilateral breath sounds and carbon dioxide detectionPerforming provider: Mario | | Antwon Zayas see intraoperative grid for any additional medication | | documentation. | |Trauma: none | |Tube placement verification: bilateral chest rise, equal bilateral breath sounds and carbon dioxide detection | |Performing provider: Mario Hernandez DO | | | | | | | |Please see intraoperative grid for any additional medication documentation. | + + documented in this encounter Visit Diagnoses Not on filedocumented in this encounter Administered Medications + +--------+ +------+------+------+ | Medication Order | MAR | Action | Dose | Rate | Site | | | Action | Date | | | | + +--------+ +------+------+------+ | ceFAZolin (ANCEF, KEFZOL) 100 | Given | 07/25/20 | 2 g | | | | mg/mL IV syringe 2 g 2 g, | | 19 9:57 | | | | | Intravenous, Administer over 30 | | PDT | | | | | Minutes, Prior to Incision, | | | | | | | Starting Wed07/25/19 at 0950, For | | | | | | | 1 dose, Pre-op, Indications: | | | | | | | Surgical Prophylaxis | | | | | | + +--------+ +------+------+------+ +---+---+ | | | +---+---+ + +-------+ +-------+---+---+ | dexamethasone (PF) 10 mg/mL | Given | 07/25/20 | 10 mg | | | | injection Intravenous, PRN, | | 19 10:02 | | | | | Starting 07/25/19 at 1002, | | PDT | | | | | Anesthesia Intra-op | | | | | | + +-------+ +-------+---+---+ +---+---+ | | | +---+---+ + +-------+ +-------+---+---+ | ePHEDrine (AKOVAZ) 50 mg/mL | Given | 07/25/20 | 10 mg | | | | injection Intravenous, PRN, | | 19 10:58 | | | | | Starting 07/25/19 at 1030, | | PDT | | | | | Anesthesia Intra-op | | | | | | + +-------+ +-------+---+---+ +-------+ +------+---+---+ | Given | 07/25/20 | 5 mg | | | | | 19 10:43 | | | | | | PDT | | | | +-------+ +------+---+---+ | Given | 07/25/20 | 5 mg | | | | | 19 10:30 | | | | | | PDT | | | | +-------+ +------+---+---+ +---+---+ | | | +---+---+ + +-------+ +--------+---+---+ | fentaNYL (PF) injection | Given | 07/25/20 | 25 mcg | | | | Intravenous, PRN, Starting Tue | | 19 11:06 | | | | | 07/25/19 at 0939, Anesthesia | | PDT | | | | | Intra-op | | | | | | + +-------+ +--------+---+---+ +-------+ +--------+---+---+ | Given | 07/25/20 | 25 mcg | | | | | 19 10:40 | | | | | | PDT | | | | +-------+ +--------+---+---+ | Given | 07/25/20 | 50 mcg | | | | | 19 9:39 | | | | | | PDT | | | | +-------+ +--------+---+---+ +---+---+ | | | +---+---+ + +-------+ +-------+---+---+ | lidocaine (PF) 2% injection | Given | 07/25/20 | 5 mLs | | | | PRN, Starting Wed07/25/19 at 0945, | | 19 9:45 | | | | | Anesthesia Intra-op | | PDT | | | | + +-------+ +-------+---+---+ +---+---+ | | | +---+---+ + +-------+ +--------+---+---+ | lidocaine (PF) 2% injection | Given | 07/25/20 | 100 mg | | | | Intravenous, PRN, Starting Wed | | 19 9:55 | | | | | 07/25/19 at 0955, Anesthesia | | PDT | | | | | Intra-op | | | | | | + +-------+ +--------+---+---+ +---+---+ | | | +---+---+ + +-------+ +------+---+---+ | ondansetron (ZOFRAN) injection | Given | 07/25/20 | 4 mg | | | | Intravenous, PRN, Starting Tue | | 19 11:32 | | | | | 07/25/19 at 1132, Anesthesia | | PDT | | | | | Intra-op | | | | | | + +-------+ +------+---+---+ +---+---+ | | | +---+---+ + +-------+ +--------+---+---+ | propofol (DIPRIVAN) injection | Given | 07/25/20 | 100 mg | | | | Intravenous, PRN, Starting Tue | | 19 9:55 | | | | | 07/25/19 at 0955, Anesthesia | | PDT | | | | | Intra-op | | | | | | + +-------+ +--------+---+---+ +---+---+ | | | +---+---+ + +-------+ +--------+---+---+ | ropivacaine (NAROPIN) 5 mg/mL | Given | 09/03/20 | 15 mLs | | | | (0.5%) injection PERINEURAL, | | 19 9:45 | | | | | PRN, Starting Wed07/25/19 at 0945, | | PDT | | | | | Anesthesia Intra-op | | | | | | + +-------+ +--------+---+---+ +---+---+ | | | +---+---+ documented in this encounter"
--- OUTSIDE RECORDS SUMMARY | ~2019-08-28 | XMS | Encounter Summary ---
Demographics + + + | Address | [address] | | | [place] [address] | + + + | Home Phone | | + + + | Preferred Language | Unknown | + + + | Marital Status | | + + + | Mu-Ism Affiliation | Unknown | + + + | Race | Unknown | + + + | Ethnic Group | Unknown | + + + Author + + + | Author | [facility] | | | and [place] | + + + | Organization | [facility] | | | and [...] Team Providers + +------+ + | Care Architect In Training Name | Role | Phone | + [...] | | | | [place] | | [phone] | | | | | Procedures | | Phone: | | | | | [place] REINSERT | | [phone] | | | | | BI/TRICEPS | | Fax: | | | | | TENDON,DISTA | | [phone] | | | | | L Right [...] | | | | | [address] | [address] [place] | | | | | [place], [place] | [place] [address] | | | | | [address] | | | | | | [phone] | | | +--------+ + + + [...] +----+---+ + + | | 1 | [place] | | | | 0 | 43-degrees | | | | 0 | | | | | 8 | | | +----+---+ + + | | 1 | First | | | | 0 | Inc/Proc [address] | | | | 1 | | | | | 2 | | | +----+---+ + + | | 1 | [place] off | | | | 1 | [...] 1356 by | | eral | Antecubital; [id number] | Ashley Solo, ARLETTE | Mel Danielson [...]
--- OUTSIDE RECORDS SUMMARY | ~2019-08-28 | XMS | Encounter Summary ---
Demographics + + + | Address | [address] | | | [place] [address] | + + + | Home Phone | | + + + | Preferred Language | Unknown | + + + | Marital Status | | + + + | Gnosticist Affiliation | Unknown | + + + | Race | Unknown | + + + | Ethnic Group | Unknown | + + + Author + + + | Author | [facility] | | | and [place] | + + + | Organization | [facility] | | | and [...] Team Providers + +------+ + | Care Yeast Pumper Name | Role | Phone | + [...] | | | | sequela | | [address] | | | | | Procedures | | Phone: | | | | | [place] REINSERT | | [phone] | | | | | BI/TRICEPS | | Fax: | | | | | TENDON,DISTA | | [phone] | | | | | L Right [...] +--------+--------+ + + + + Encounter Details +--------+---------+ + + + | Date | Type | Department | Care Team | Description | +--------+---------+ + + + | 07/25/ | Surgery | [facility] | Rico Grubbs MD | Right distal biceps | | 2018 | | [facility] | [address] | tendon repair with | | | | [address] | [place], [place] | possible allograft | | | | [place], [place] | [address] | | | | | [address] | [phone] | | | | | [phone] | | | +--------+---------+ + + + Social History + + + +--------+ + [...] + +------+---+---+ + + | Comments: quit 1992 | + + + + +---------+ + [...] + + documented as of this encounter Last Filed Vital Signs + + + + | Vital Sign | Reading | Time Taken | + + + + | Blood Pressure | 116/64 | 07/25/2019 1330 PDT | + + + + | Pulse | 67 | 07/25/20190 PDT | + + + + | Temperature | 36.1 C (97 F) | 07/25/2019 1200 PDT | + + + + | Respiratory Rate | 16 | 07/25/20191329 PDT | + + + + | Oxygen Saturation | 95% | 07/25/20191329 PDT | + + + + | Inhaled Oxygen | - | - | | Concentration | | | + + + + | Weight | 85.6 kg (188 lb 11.4 | 07/25/2019 0853 PDT | | | oz) | | + + + + | Height | 172.7 cm (5' 8") | 07/25/201953 PDT | + + + + | Body Mass Index | 28.69 | 07/25/2019 0853 PDT | + + + + documented in this encounter Discharge Instructions Instructions Mel Danielson RN - 07/21/2019[place] post-op appointment is scheduled for Fr mensah, at 10:45 am Please check-in at 10:30 - Leave the splint and sling in place until we see you in the office. No lifting with the right hand. You may wiggle your fingers and make a fist to help with circulation. - Keep the splint clean and dry. - Elevate the arm, especially the first 24 hours or for continued swelling. Put the arm on a pillow on top of your chest or get your hand and elbow above the level of your heart. - Take your pain medication prescribed as needed and switch to tyelnol when able. - We advise that you leave the tape bandages on the skin until they fall off a few weeks fr om now, if you peel them off you'll risk tearing your skin. - Call the office with any questions or concerns. [phone] Ext [phone] - You will be given additional instructions at your follow up appointments. When to seek medical advice Call your healthcare provider right away if any of these occur: The plaster cast or splint becomes wet or soft The fiberglass cast or splint stays wet for more than 24 hours There is increased tightness or pain under the cast or splint The fingers on your injured hand become swollen, cold, blue, numb, or tingly [facility] Patient Opioid Handout for Acute or Perioperative Pain Opioid analgesics should only be taken as directed since misuse or diversion of these produ cts can be illegal, extremely harmful and even deadly. Prescription Opioids (such as hydro codone, oxycodone, hydromorphone, MS contin) are strong prescription pain medications and ar e often necessary following surgery. They can be an important part of treatment, but also c ome with serious risks. Anyone taking an opioid is vulnerable to the following risks. Major Risks: Addiction, Overdose and . Other Serious Risks & Side Effects include: ? Constipation, Nausea, Vomiting, Dry Mouth, Itching, Sweating, Sleepiness, Dizziness, Conf usion, Depression, as well as Low Testosterone resulting in low sex drive, energy and streng th. ? Tolerance meaning you need more of the medication for the same relief but also have h igher side effects ? Physical dependence withdrawal symptoms occur when the medication is stopped diff erent from addiction You are at a higher risk if ANY of the following apply to you: Sleep apnea, Age > 65, , Mental health problems including Anxiety & Depression, &a mp; History of Misuse. Certain medications also increase your risks of overdose and , including benzodiazepin es, muscle relaxers, & hypnotics. Avoid these when possible. If you think you may be on on e of these medications, talk with your pharmacist when filling your pain prescription. Hermilo thayer go to the same pharmacy when possible. Opioid Instructions: ? Do not drink alcohol while taking opioids ? Do not drive while taking opioids ? Do not take opioids in greater amounts or more often than prescribed ? Do not take unless truly needed As your pain improves, consider alternative modalities including: Over the counter medicati ons as advised by your provider, ice and/or heat as appropriate, Cognitive Behavior Therapy, Massage Therapy, Physical Therapy, & other disciplines. Overdose: occurs when too much of the drug overwhelms the brain's drive to breathe. Recognize the signs and symptoms: small pinpoint pupils, overly sleepy or difficult t o arouse from sleep, slow and shallow breathing, choking or gurgling sounds, limpness, pale blue or cold skin. Should any of these occur, call 911 for immediate assistance. Lay the person on their side to prevent choking. Stay with the person until help arrives. If the person is sleepy, but arouses easily and communicates clearly, immediately discontinue the medication and call e prescribing provider to discuss a change in medication, dose and/or frequency. Continue t o monitor for worsening symptoms. If you think you're struggling with addiction call our office and [facility]'s [place] at [phone]. Secure Storage Prescriptions should be stored out of reach of children and pets, in a safe place, preferab ly locked to prevent other family members and visitors from taking them. If opioids are i ngested by others for whom they are not prescribed, these individuals might experience overd ose at the same dose or even at a lower dosage than what was prescribed for the patient. Do not share or sell prescribed medications. Resources for proper disposal of unused opioids: Returns: The preferred option is the twice yearly local take back program administe red by the [place]. Other preferred options include medication drop box at a police station if a vailable, [place]-authorized collection site or pharmacy secure drop-box program if available. ? Take Back Program: https://www.Franchisee Gladiatorion.[place].gov/drug_disposal/takeback/ National P rescription Drug Take Back Day: February ? To find an authorized local package collector contact the [facility] Office of Diversion Control s [facility] istration Call Center at ? Call your local pharmacy for recommendations. ? Search for a drug disposal location near you on the [place] diversion control division search engine: https://apps.deadiversion.[place].gov/pubdispsearch/spring/main?execution=e1s1 At the time of printing: Rupa Pearson in [place], Ellis in [place], Nir templeton in [place] How to Dispose of Medicines at Home: Taken from the FDA guide How to Dispose of Unused Medicines https://www.fda.gov/ForConsumers/ConsumerUpdates/kkt888044.htm Disposing medicines in household trash: Almost all medicines can be thrown into your househ old trash. These include prescription drugs in pills, liquids, patches, creams, and inhalers . Follow these steps: 1. Remove the drugs from their original containers and mix them with something undesirable, such as used coffee grounds, dirt, or cat litter. This makes the medicine less appealing to children and pets and unrecognizable to someone who might intentionally go through the tras h looking for drugs. 2. Put the mixture in something you can close (a zipper storage bag, empty can, or other co ntainer) to prevent the drug from leaking or spilling out. 3. Throw the container in the garbage. 4. Scratch out all your personal information on the empty medicine packaging to protect you r identity and privacy. Throw the packaging away. 5. OR - keep in the original container, scratch out identifiers, add water and an undesira ble as listed above, close and seal with duct tape, and hide inside another piece of garbage . Flushing medicines: We do not recommend flushing opioids. *Local governments have the david davis say in flushing disposal, please consult local laws and regulations first.* Resources: Diversion Control Division of the [place], [place] Food and Drug Administration, AMA, CDC documented in this encounter Medications at Time of Discharge + + + +---------+ + + | Medication | Sig | Dispensed | Refills | Start | End Date | | | | | | Date | | + + + +---------+ + + | amLODIPine | Take 1 tablet by | | 0 | 05/06/20 | | | (NORVASC) 5 mg | mouth Daily. | | | 16 | | | tablet | Quantity: 90; | | | | | | | Refills: 3Arei | | | | | | | Fanta Ricci; Start | | | | | | | Active | | | | | + + + +---------+ + + | aspirin 81 MG | Take 1 tablet by | | 0 | | | | tablet | mouth Daily. | | | | | | | Refills: 0 Dougie | | | | | | | Radhames Jewell; Active | | | | | + + + +---------+ + + | atenolol | Take 25 mg by mouth | | 0 | 12/28/19 | | | (TENORMIN) 50 mg | Daily. Quantity: 90; | | | 17 | | | tablet | Refills; 3 Dougie | | | | | | | Radhames Jewell; start | | | | | | | 28-dec-2016 Active | | | | | + + + +---------+ + + | clindamycin | Apply topically 2 | | 0 | 08/14/20 | | | (CLEOCIN T) 1% | times daily. | | | 16 | | | external solution | Clindamycin | | | | | | | Phosphate 1% | | | | | | | External Solution | | | | | | | Apply sparingly to | | | | | | | affected area(s) | | | | | | | Quantity: 3; | | | | | | | Refills: 12 [place] | | | | | | | Fanta Arndt; Guerrero | | | | | | | Active 60 | | | | | | | ML Bottle | | | | | + + + +---------+ + + | doxazosin | Take 1 mg by mouth | | 0 | | | | (CARDURA) 1 mg | nightly. | | | | | | tablet | | | | | | + + + +---------+ + + | doxycycline | Take 1 capsule by | | 0 | 06/01/20 | | | (MONODOX) 50 MG | mouth Daily. | | | 17 | | | capsule | Quantity: 180; | | | | | | | Refills; 1 [place] | | | | | | Seema Meza M.D. | | | | | | | Active | | | | | + + + +---------+ + + | | Take 1 - 2 tablets | 30 | 0 | 07/25/20 | | | HYDROcodone-acetamin | by mouth EVERY 4 to | tablet | | 19 | | | ophen (NORCO) | 6 HOURS NEEDED | | | | | | 7.5-325 mg per | for Pain. | | | | | | tablet | | | | | | + + + +---------+ + + | Multiple Vitamins | Take 1 tablet by | | 0 | | | | TABS | mouth Daily. | | | | | | | Refills: 0Active | | | | | + + + +---------+ + + | Multiple | Take 1 tablet by | | 0 | | | | Vitamins-Minerals | mouth Daily. | | | | | | (OCUVITE PO) | Refills: 0Active | | | | | + + + +---------+ + + | nitroglycerin | Place 1 tablet under | | 0 | | | | (NITROSTAT) 0.4 mg | the tongue every 5 | | | | | | SL tablet | minutes. For up to 3 | | | | | | | doses as needed for | | | | | | | chest pain or go to | | | | | | | the ER at once | | | | | | | Refills:0Active | | | | | + + + +---------+ + + | omeprazole | Take 1 capsule by | | 0 | 07/29/20 | | | (PRILOSEC) 20 mg | mouth Daily. | | | 17 | | | capsule | Quantity: 90; | | | | | | | Refills; 3 Dougie | | | | | | | Radhames Jewell; Start | | | | | | | 29-Jul-2017 Active | | | | | + + + +---------+ + + | oxybutynin | Take 1 tablet by | | 0 | | | | (DITROPAN XL) 15 MG | mouth Three times a | | | | | | 24 hr tablet | week. Quantity: 90; | | | | | | | Refills; 0 Dougie | | | | | | Radhames Meza M.D.; Active | | | | | + + + +---------+ + + | rosuvastatin | Take 1 tablet by | | 0 | 05/01/20 | | | (CRESTOR) 5 MG | mouth nightly. | | | 19 | 0 | | tablet | | | | | | + + + +---------+ + + | simethicone | Take 1 tablet by | | 0 | | | | (GAS-X) 80 mg | mouth Daily. Chew | | | | | | chewable tablet | | | | | | + + + +---------+ + + documented as of this encounter Plan of Treatment Not on filedocumented as of this encounter Procedures + +--------+ + + + | Procedure Name | Priori | Date/Time | Associated Diagnosis | Comments | | | ty | | | | + +--------+ + + + | REPAIR BICEPS TENDON | | 07/25/2019 | Rupture of biceps | | | | | 9:50 PDT | tendon, right, | | | | | | sequela | | + +--------+ + + + +---+--------+ | | | | | Specia | | | l | | | Needs | | | | | | Achill | | | es | | | Tendon | | | | | | Allogr | | | aft in | | | | | | freeze | | | r | +---+--------+ + +--------+ + + + | HEMOGLOBIN | Routin | 07/25/2019 | [facility] | Results for this | | | e | 8:46 PDT | (arteriosclerotic | procedure are in the | | | | | heart disease) | results section. | + +--------+ + + + | ECG 12 LEAD | STAT | 07/25/2019 | [facility] | Results for this | | | | 8:24 PDT | (arteriosclerotic | procedure are in the | | | | | heart disease) | results section. | + +--------+ + + + documented in this encounter Results Hemoglobin (07/25/2019 8:46 PDT) + +-------+ + + + | Component | Value | Ref Range | Performed | Pathologist | | | | | At | Signature | + +-------+ + + + | Hemoglobin | 13.7 | 13.5 - 18.0 | [facility] | | | | | g/dL | [facility] | [facility] | | | | | | [facility]ORY | | + +-------+ + + + + + | Specimen | + + | Blood | + + + + + + + | Performing | Address | City/State/Zipcode | Phone Number | | Organization | | | | + + + + + | [facility] | [address] | [place] | [phone] | | [facility] | | [id number] | | | - LABORATORY | | | | + + + + + ECG 12 lead (07/25/2019 8:24 PDT) + + + + + + | Component | Value | Ref Range | Performed | Pathologist | | | | | At | Signature | + + + + + + | VENTRICULAR | 49 | BPM | [facility] | | | RATE EKG | | | | | + + + + + + | ATRIAL RATE | 49 | BPM | [facility] | | + + + + + + | P-R | 164 | ms | [facility] | | | INTERVAL | | | | | + + + + + + | QRS | 88 | ms | [facility] | | | DURATION | | | | | + + + + + + | Q-T | 478 | ms | [facility] | | | INTERVAL | | | | | + + + + + + | Q-T | 431 | ms | [facility] | | | INTERVAL | | | | | | (CORRECTED) | | | | | + + + + + + | P WAVE AXIS | 39 | degrees | [facility] | | + + + + + + | QRS AXIS | 13 | degrees | [facility] | | + + + + + + | T AXIS | 33 | degrees | [facility] | | + + + + + + | INTERPRETAT | Sinus | | [facility] | | | ION TEXT | bradycardiaInferior | | | | | | infarct (cited on or | | | | | | before | | | | | | 27-SEP-2015)Nonspecific | | | | | | T wave abnormality | | | | | | Inferior leadsAbnormal | | | | | | ECGWhen compared with | | | | | | ECG of 27-SEP-2015 | | | | | | 13:59,Nonspecific T wave | | | | | | abnormality no longer | | | | | | evident in Anterolateral | | | | | | leadsConfirmed by | | | | | | JENNIFER SWEENEY, ALEXIS ([id number]) | | | | | | on 07/26/2019 6:22:58 AM | | | | + + + + + + + + | Specimen | + + | | + + + + + | Narrative | Performed At | + + + | | | + + + + +---------+ + + | Performing | Address | City/State/Zipcode | Phone Number | | Organization | | | | + +---------+ + + | [facility] | | | | + +---------+ + + documented in this encounter Visit Diagnoses + + | Diagnosis | + + | Rupture of biceps tendon, right, sequela | + + documented in this encounter Administered Medications + +--------+ +--------+------+------+ | Medication Order | MAR | Action | Dose | Rate | Site | | | Action | Date | | | | + +--------+ +--------+------+------+ | acetaminophen (TYLENOL) tablet | Given | 07/25/20 | 650 mg | | | | 650 mg 650 mg, Oral, ONCE, Tue | | 19 8:28 | | | | | 07/25/19 at 0815, For 1 dose, | | PDT | | | | | Pre-op | | | | | | + +--------+ +--------+------+------+ + +---+ | | | + +---+ | albuterol 2.5 mg/3 mL nebulizer | | | solution 2.5 mg 2.5 mg, | | | Nebulization, ONCE PRN, Wheezing, | | | Starting 07/25/19 at 1146, For | | | 1 dose, Notify anesthesia if | | | patient is wheezing and does not | | | have a history of asthma or COPD | | | or current smoking., | | | Recovery/Phase I | | + +---+ | | | + +---+ | dextrose 50% injection 12.5-25 | | | g 12.5-25 g, Intravenous, EVERY | | | 15 MIN PRN, Low Blood Sugar, Give | | | 12.5g (25 mL) IV if blood | | | glucose 50-69 mg/dL. Give 25g | | | (50 mL) IV if blood glucose < 50, | | | Starting 07/25/19 at 0752, | | | Repeat in 15 min if blood glucose | | | remains < 70 mg/dL. Repeat | | | blood glucose in 30 min once | | | blood glucose > 70., Pre-op | | + +---+ | | | + +---+ | dextrose 50% injection 12.5-25 | | | g 12.5-25 g, Intravenous, EVERY | | | 15 MIN PRN, Low Blood Sugar, For | | | hypoglycemia. Give 12.5g (25ml) | | | IV if blood glucose 50-69 | | | mg/dL. Give 25g (50ml) IV if | | | blood glucose < 50, Starting Tue | | | 07/25/19 at 1146, Give over 2 min. | | | Repeat in 15 min if blood | | | glucose remains < 70 mg/dL. | | | Repeat blood glucose in 30 min | | | once blood glucose > 70., | | | Recovery/Phase I | | + +---+ | | | + +---+ | diphenhydrAMINE (BENADRYL) 12.5 | | | mg/5 mL liquid 25 mg 25 mg, | | | Oral, EVERY 4 HOURS PRN, Itching, | | | Starting 07/25/19 at 1235, | | | Oral route is preferred., | | | Post-op/Phase II | | + +---+ | | | + +---+ | diphenhydrAMINE (BENADRYL) | | | injection 12.5 mg 12.5 mg, | | | Intravenous, EVERY 4 HOURS PRN, | | | Itching, Starting e 07/25/19 at | | | 1235, Oral route is preferred., | | | Post-op/Phase II | | + +---+ | | | + +---+ | diphenhydrAMINE (BENADRYL) | | | tablet 25 mg 25 mg, Oral, EVERY | | | 4 HOURS PRN, Itching, Starting | | | e 07/25/19 at 1235, Oral route is | | | preferred., Post-op/Phase II | | + +---+ | | | + +---+ | fentaNYL (PF) injection 25-50 | | | mcg 25-50 mcg, Intravenous, | | | EVERY 5 MIN PRN, Pain, Initial | | | postop urgent pain or escalating | | | pain, Starting 07/25/19 at | | | 1146, For 4 doses, Every 5 | | | minutes PRN for initial postop | | | urgent pain or escalating pain up | | | to 2 doses maximum. If patient | | | meets opioid tolerant definition, | | | can give up to 4 doses maximum. | | | First dose must be lowest dose. | | | Use Pasero Sedation Scale. | | | [Opioid tolerant = One week or | | | longer, uhmxvl-wew-donvr use of | | | at least the following DAILY | | | dose: 60mg oral morphine, 60mg | | | oral hydrocodone, 30mg oral | | | oxycodone, 8mg oral | | | hydromorphone, fentanyl patch | | | 25mcg/hr, or equivalent dose of | | | another opioid], Recovery/Phase I | | + +---+ | | | + +---+ + +-------+ +--------+---+---+ | gabapentin (NEURONTIN) capsule | Given | 07/25/20 | 300 mg | | | | 300 mg 300 mg, Oral, ONCE, e | | 19 8:28 | | | | | 07/25/19 at 0815, For 1 dose, | | PDT | | | | | Pre-op | | | | | | + +-------+ +--------+---+---+ + +---+ | | | + +---+ | HYDROmorphone (DILAUDID) | | | injection 0.2-0.6 mg 0.2-0.6 mg, | | | Intravenous, EVERY 5 MIN PRN, | | | Pain, Starting 07/25/19 at | | | 1146, First dose must be lowest | | | dose, can increase subsequent | | | doses by 0.2mg within dosing | | | range. If patient meets opioid | | | tolerant definition, can start | | | with 0.4mg dose. [Maximum total | | | PACU dose 4mg] Use Pasero | | | Sedation Scale. [Opioid tolerant | | | = One week or longer, | | | ltplgf-awz-sxbsb use of at least | | | the following DAILY dose: 60mg | | | oral morphine, 60mg oral | | | hydrocodone, 30mg oral oxycodone, | | | 8mg oral hydromorphone, fentanyl | | | patch 25mcg/hr, or equivalent | | | dose of another opioid], | | | Recovery/Phase I | | + +---+ | | | + +---+ | labetalol (TRANDATE) 5 mg/mL | | | injection 5 mg 5 mg, | | | Intravenous, EVERY 5 MIN PRN, For | | | SBP > 180, DBP > 100, Starting | | | 07/25/19 at 1146, Hold if HR < | | | 60. Maximum total dose 300mg. | | | Notify anesthesia if patient | | | requires more than 50mg., | | | Recovery/Phase I | | + +---+ | | | + +---+ + +---------+ +--------+-------+ + | lactated ringers (LR) infusion | New Bag | 07/25/20 | 1,000 | 100 | Left Arm | | at 10-100 mL/hr, Intravenous, | | 19 8:29 | mLs | mL/hr | | | CONTINUOUS, Starting Wed07/25/19 | | PDT | | | | | at 0815, TKO., Pre-op | | | | | | + +---------+ +--------+-------+ + + +---+ | | | + +---+ | ondansetron (ZOFRAN) injection | | | 4 mg 4 mg, Intravenous, ONCE | | | PRN, Nausea, Starting Wed07/25/19 | | | at 1146, For 1 dose, | | | Recovery/Phase I | | + +---+ | | | + +---+ documented in this encounter
--- OUTSIDE RECORDS SUMMARY | ~2019-08-28 | XMS | Encounter Summary ---
Demographics + + + | Address | [address] | | | [place] [address] | + + + | Home Phone | | + + + | Preferred Language | Unknown | + + + | Marital Status | | + + + | Protestant Affiliation | Unknown | + + + | Race | Unknown | + + + | Ethnic Group | Unknown | + + + Author + + + | Author | [facility] (Historical as of | | | 07-08-19) | + + + | Organization | [facility] (Historical as of | | | 07-08-19) | + + + | Address | Unknown | + + + | Phone | Unavailable | + + + Support + + +---------+ + | Name | Relationship | Address | Phone | + + +---------+ + | Tenisha Shetty | ECON | Unknown | | + + +---------+ + Care Team Providers + +------+ + | Care Youth Pastor Name | Role | Phone | + +------+ + | Radhames Constantino MD | PCP | Unavailable | + +------+ + Reason for Visit +--------+ + | Reason | Comments | +--------+ + | Other | Lipid panel from [facility] | +--------+ + Encounter Details +--------+ + + + + | Date | Type | Department | Care Team | Description | +--------+ + + + + | 06/06/ | Documentati | [facility] | Bryon Celaya MA | Other (Lipid panel | | 2019 | on Only | [facility] | | from [facility]) | | | | [address] | | | | | | [place] | | | | | | [address] | | | | | | [phone] | | | +--------+ + + + + Social History + +-------+ +--------+ [...] + +---+---+---+ + + | Comments: quit 1992 | [...] on file | | + + + as of this encounter Plan of Treatment Not on fileas of this encounter Visit Diagnoses Not on filein this encounter"
--- OUTSIDE RECORDS SUMMARY | ~2019-08-28 | XMS | Encounter Summary ---
Demographics + + + | Address | [address] | | | [place] [address] | + + + | Home Phone | | + + + | Preferred Language | Unknown | + + + | Marital Status | | + + + | Nondenominational Affiliation | Unknown | + + + | Race | Unknown | + + + | Ethnic Group | Unknown | + + + Author + + + | Author | [facility] | | | and [place] | + + + | Organization | [facility] | | | and [...] Team Providers + +------+ + | Care Head Filter Press Tender Name | Role | Phone | + +------+ + | Radhames Constantino MD | PCP | Unavailable | + +------+ + Encounter Details +--------+ + + + + | Date | Type | Department | Care Team | Description | +--------+ + + + + | 06/22/ | Orders Only | [facility] | Provider, | Atherosclerotic | | 2019 | | SYSTEM GENERIC OP | MD [address] | heart disease of | | | | CONVERSION [address] | [place] [address] | [place] coronary | | | | [address] [place], [place] | [place] [address] | artery without | | | | [address] | | angina pectoris; | | | | [phone] | | Pure | | | | | | hypercholesterolemia | +--------+ + + + + Social [...] + | Yes | 3 | | Alcoholic Drinks/day: 2 glasses or wine [...] as of this encounter Plan of Treatment + +--------+ + + | Name | Priori | Associated Diagnoses | Order Schedule | | | ty | | | + +--------+ + + | Lipid Panel | Routin | Atherosclerotic | Expected: | | | e | heart disease of | 05/09/2019, Expires: | | | | [place] coronary | 05/09/2020 | | | | artery without | | | | | angina pectoris | | | | | Pure | | | | | hypercholesterolemia | | + +--------+ + + documented as of this encounter Visit Diagnoses + + | Diagnosis | + + | Atherosclerotic heart disease of [place] coronary artery without angina pectoris | | Coronary atherosclerosis of [place] coronary artery | + + | Pure hypercholesterolemia | + + documented in this encounter"
--- OUTSIDE RECORDS SUMMARY | ~2019-08-28 | XMS | Encounter Summary ---
Demographics + + + | Address | [address] | | | [place] [address] | + + + | Home Phone | | + + + | Preferred Language | Unknown | + + + | Marital Status | Single | + + + | Christian Affiliation | Unknown | + + + | Race | Unknown | + + + | Ethnic Group | Other Race | + + + Author + + + | Author | [facility] | + + + | Organization | [facility] | + + + | Address | Unknown | + + + | Phone | Unavailable | + + + Care Team Providers + +------+ + | Care Agricultural Engineering Technologist Name | Role | Phone | + +------+ + PCP | Unavailable | + +------+ + Encounter Details +--------+ + + + + | Date | Type | Department | Care Team | Description | +--------+ + + + + | 10/09/ | Results | NON[facility] | [place], | | | 2009 | Only | Department | MD Wyatt Abad | | | | | | Travis Mcarthur | | | | | | [address] | | | | | | [address] | | | | | | [place], [place] | | | | | | [address] | | | | | | | | +--------+ + + + + Social History + +-------+ +--------+------+ | Tobacco Use | Types | Packs/Day | Years | Date | | | | | Used | | + +-------+ +--------+------+ | Never Assessed | | | | | + +-------+ +--------+------+ + + + | Sex Assigned at [...] | + +--------+ + + + | DERMATOPATHOLOGY(CON | Routin | 10/09/2010 | | Results for this | | SULT) | e | | | procedure are in the | | | | | | results section. | + +--------+ + + + documented in this encounter Results DERMATOPATHOLOGY(CONSULT) (10/09/2010) + + + + + + | Component | Value | Ref Range | Performed | Pathologist | | | | | At | Signature | + + + + + + | DERMATOPATH | SOURCE OF SPECIMEN:A | | [facility] | | | (CONSULT) | CONSULTATION | | DERMATOPATH | | | | CLINICAL | | OLOGY | | | | DESCRIPTION:Shave, | | | | | | medial chest; 1.7 x | | | | | | 1.1cm eryth sclerotic | | | | | | plaque; R/O | | | | | | chronicdermatitis1 | | | | | | outside slides | | | | | | ([id number]) | | | | | | received. Dear | | | | | | Dr. | | | | | | D'Nicholas: | | | | | | Thank you for | | | | | | asking us to review | | | | | | Jc Lappen's medial | | | | | | chest biopsywhere there | | | | | | is a parakeratosis | | | | | | containing hemorrhage as | | | | | | well as | | | | | | compacthyperkeratosis | | | | | | overlying slightly | | | | | | papillated epidermal | | | | | | hyperplasia. Theepith | | | | | | elial nuclei are small | | | | | | and uniform. There | | | | | | are telangiectatic | | | | | | vesselsthroughout the | | | | | | upper dermis. 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 The | | | | | | findings are not | | | | | | entirely diagnostic | | | | | | although suggest a | | | | | | LICHENIFIEDTRAUMATIZED | | | | | | SEBORRHEIC | | | | | | KERATOSIS. LICHENIFIE | | | | | | D CHRONIC | | | | | | SPONGIOTICDERMATITIS | | | | | | such as NUMMULAR | | | | | | DERMATITIS is in the | | | | | | histologic | | | | | | differentialalthough | | | | | | less likely given the | | | | | | minimal | | | | | | inflammation. Clinica | | | | | | l correlationis | | | | | | necessary. Thank | | | | | | you for referring this | | | | | | consultation.1 slide | | | | | | ([id number]) returned to | | | | | | | | | | | | Shira. | | | | | | CRW:mm10/22/10 My | | | | | | electronic signature | | | | | | indicates that I have | | | | | | personally reviewed | | | | | | alldiagnostic slides, | | | | | | the gross and/or | | | | | | microscopic portion of | | | | | | thisreport and | | | | | | formulated the final | | | | | | diagnosis. | | | | | | Rendering | | | | | | Diagnostician: Prabhjot | | | | | | jorje Matias Jr., | | | | | | FantaPathologistLui | | | | | | candida Signed 10/22/2010 | | | | + + + + + + + + | Specimen | + + | | + + + + + + + | Performing | Address | City/State/Zipcode | Phone Number | | Organization | | | | + + + + + | [facility] | [address] | [place] [address] | | | DERMATOPATHOLOGY | Bharathi Cross | | | + + + + + documented in this encounter Visit Diagnoses Not on filedocumented in this encounter"
--- OUTSIDE RECORDS SUMMARY | ~2019-08-28 | XMS | Encounter Summary ---
Demographics + + + | Address | [address] | | | [place] [address] | + + + | Home Phone | | + + + | Preferred Language | Unknown | + + + | Marital Status | | + + + | Holiness Affiliation | Unknown | + + + [...] Team Providers + +------+ + | Care Salesperson Used Cars Name | Role | Phone | + [...] | | | | [place] | | [address] | | | | | Procedures | | Phone: | | | | | [place] REINSERT | | [phone] | | | | | BI/TRICEPS | | Fax: | | | | | [place]END[place],DISTA | | [phone] | | | | | L Right [...] with | | | | [address] | [place], [place] | possible allograft | | | | [place], [place] | [address] | | | | | [address] | [phone] | | | | | [phone] | | | +--------+---------+ + + + [...] the office with any questions or concerns. [phone] Ext [phone] - You will be given additional instructions [...] become swollen, cold, blue, numb, or tingly [facility] Patient Opioid Handout for Acute or Perioperative [...] struggling with addiction call our office and [facility]'s Callery Helpli ne at [phone]. Secure Storage Prescriptions should be stored out [...] program if available. ? Take Back Program: https://www.Proxsysion.CareXtendoPuzl.gov/drug_disposal/takeback/ National P rescription Drug Take Back Day: February ? To find an authorized local bad credit collector contact the [facility] Office of Diversion Control s [facility] istration Call Center at ? Call your local pharmacy for recommendations. ? Search for a drug disposal location near you on the [place] diversion control division search engine: https://apps.deadiversion.CareXtendoPuzl.gov/pubdispsearch/spring/main?execution=e1s1 At the time of printing: Rupa Pearson in [place], Ellis in [place], Nir templeton in [place] How to Dispose of Medicines at Home: Taken from the FDA guide How to Dispose of Unused Medicines https://www.fda.gov/ForConsumers/ConsumerUpdates/tjk540231.htm Disposing medicines in household trash: Almost all [...] | | | | | Refills; [address] [place] | | | | | | Seema [...] + | [facility] | [address] | [place] | [phone] | | [facility] | | [address] | | | - LABORATORY | | [...] | | | | JENNIFER SWEENEY, ALEXIS ([id number]) | | | | | | on [...] One week or | | | longer, ocpchx-bjk-ppyou use of | | | at least [...] One week or longer, | | | kfqrkj-zeh-ujczo use of at least | | | [...]
--- OUTSIDE RECORDS SUMMARY | ~2019-08-28 | XMS | Clinical Summary ---
Demographics + + + | Address | [address] [facility] [address] | | | [place] [address] | + + + | Home Phone [...] Team Providers + +------+ + | Care Telepathist Name | Role | Phone | + +------+ + | Radhames Constantino MD | PCP | Unavailable | + +------+ + Allergies + + + + + + | Active Allergy | Reactions | Severity | Noted | Comments | | | | | Date | | + + + + + + | Adhesive & Tape | Other (See Comments) | Low | 09/19/20 | Foam tape, | | | | | 13 | Tegaderm and | | | | | | surgical tape cause | | | | | | blisters | + + + + + + | Atorvastatin | Other (See Comments) | Low | 09/27/20 | Dizziness and leg | | | | | 15 | cramps | + + + + + + | Ezetimibe | Myalgia | Low | 06/22/20 | | | | | | 19 | | + + + + + + | Lisinopril | Palpitations, Cough | Low | 06/22/20 | | | | | | 19 | | + + + + + + | Losartan | Shortness Of Breath, | High | 06/22/20 | . | | | Other (See | | 19 | | | | Comments), Vertigo | | | | + + + + + + | Pravastatin | Myalgia | Low | 06/22/20 | | | | | | 19 | | + + + + + + Medications + + + +---------+------+------+-------+ | Medication | Sig | Dispensed | Refills | Star | End | Statu | | | | | | t | Date | s | | | | | | Date | | | + + + +---------+------+------+-------+ | Multiple Vitamins | Take 1 tablet by | | 0 | | | Activ | | TABS | mouth Daily. | | | | | e | | | Refills: 0Active | | | | | | + + + +---------+------+------+-------+ | Multiple | Take 1 tablet by | | 0 | | | Activ | | Vitamins-Minerals | mouth Daily. | | | | | e | | (OCUVITE PO) | Refills: 0Active | | | | | | + + + +---------+------+------+-------+ | aspirin 81 MG | Take 1 tablet by | | 0 | | | Activ | | tablet | mouth Daily. | | | | | e | | | Refills: 0 Dougie | | | | | | | | Radhames Jewell; Active | | | | | | + + + +---------+------+------+-------+ | clindamycin | Apply topically 2 | | 0 | 09/2 | | Activ | | (CLEOCIN T) 1% | times daily. | | | 3/20 | | e | | external solution | Clindamycin | | | 16 | | | | | Phosphate 1% [...] | | | | | Fanta Arndt; Start | | | | | | | | [id number] Active 60 | | | | | | | | ML Bottle | | | | | | + + + +---------+------+------+-------+ | doxazosin | Take 1 mg by mouth | | 0 | | | Activ | | (CARDURA) 1 mg | nightly. | | | | | e | | tablet | | | | | | | + + + +---------+------+------+-------+ | nitroglycerin | Place 1 tablet under | | 0 | | | Activ | | (NITROSTAT) 0.4 mg | the tongue every 5 | | | | | e | | SL tablet | minutes. For up to 3 | | | | | | | | doses as needed for | | | | | | | | chest pain or go to | | | | | | | | the ER at once | | | | | | | | Refills:0Active | | | | | | + + + +---------+------+------+-------+ | rosuvastatin | Take 1 tablet by | | 0 | 06/1 | 06/0 | Activ | | (CRESTOR) 5 MG | mouth nightly. | | | 0/20 | 920 | e | | tablet | | | | 19 | 20 | | + + + +---------+------+------+-------+ | amLODIPine | Take 1 tablet by | | 0 | 06/1 | | Activ | | (NORVASC) 5 mg | mouth Daily. | | | 20 | | e | | tablet | Quantity: 90; | | | 16 | | | | | Refills: 3Arei | | | | | | | | Fanta Ricci; Start | | | | | | | | Active | | | | | | + + + +---------+------+------+-------+ | atenolol | Take 25 mg by mouth | | 0 | 02/0 | | Activ | | (TENORMIN) 50 mg | Daily. Quantity: 90; | | | 05/11 | | e | | tablet | Refills; 3 Dougie | | | 17 | | | | | Radhames Jewell; start | | | | | | | | 28-dec-2016 Active | | | | | | + + + +---------+------+------+-------+ | doxycycline | Take 1 capsule by | | 0 | 07/1 | | Activ | | (MONODOX) 50 MG | mouth Daily. | | | 12/11 | | e | | capsule | Quantity: 180; | | | 17 | | | | | Refills; 1 Waleska | | | | | | | | Yris Jewell; start | | | | | | | | Active | | | | | | + + + +---------+------+------+-------+ | omeprazole | Take 1 capsule by | | 0 | 09/0 | | Activ | | (PRILOSEC) 20 mg | mouth Daily. | | | 06/10 | | e | | capsule | Quantity: 90; | | | 17 | | | | | Refills; 3 Dougie | | | | | | | | Radhames Jewell; Start | | | | | | | | 29-Jul-2017 Active | | | | | | + + + +---------+------+------+-------+ | oxybutynin | Take 1 tablet by | | 0 | | | Activ | | (DITROPAN XL) 15 MG | mouth Three times a | | | | | e | | 24 hr tablet | week. Quantity: 90; | | | | | | | | Refills; 0 Dougie | | | | | | | | Radhames Jewell; Active | | | | | | + + + +---------+------+------+-------+ | simethicone | Take 1 tablet by | | 0 | | | Activ | | (GAS-X) 80 mg | mouth Daily. Chew | | | | | e | | chewable tablet | | | | | | | + + + +---------+------+------+-------+ | | Take 1 - 2 tablets | 30 | 0 | 09/0 | | Activ | | HYDROcodone-acetamin | by mouth EVERY 4 to | tablet | | 3/20 | | e | | ophen (NORCO) | 6 HOURS NEEDED | | | 19 | | | | 7.5-325 mg per | for Pain. | | | | | | | tablet | | | | | | | + + + +---------+------+------+-------+ Active Problems + + + | Problem | Noted Date | + + + | Actinic keratosis | 06/22/2019 | + + + | ASHD (arteriosclerotic heart disease) | 06/22/2019 | + + + | Bacterial infection of skin | 06/22/2019 | + + + | Bilateral sciatica | 06/22/2019 | + + + | Erectile disorder, acquired, generalized, moderate | 06/22/2019 | + + + | Imbalance | 06/22/2019 | + + + | Impaired fasting glucose | 06/22/2019 | + + + | Lower back pain | 06/22/2019 | + + + | Need for pneumococcal vaccine | 06/22/2019 | + + + | Neoplasm of uncertain behavior of skin | 06/22/2019 | + + + | Pure hypercholesterolemia | 06/22/2019 | + + + | Right knee buckling | 06/22/2019 | + + + | Right knee pain | 06/22/2019 | + + + | Rosaambera | 06/22/2019 | + + + | Screening for malignant neoplasm of skin | 06/22/2019 | + + + | Scar | 06/22/2019 | + + + | Tinea pedis | 06/22/2019 | + + + | Ulnar nerve palsy | 06/22/2019 | + + + | Ulnocarpal impaction syndrome, right | 06/22/2019 | + + + | Wrist pain, chronic, right | 06/22/2019 | + + + | Chronic GERD | 06/22/2019 | + + + | Lumbar canal stenosis | 06/22/2019 | + + + | Rupture of biceps tendon, right, initial encounter | 03/05/2019 | + + + + + | Overview: 03/05/2019 | + + + + + | CAD in [place] artery | 02/03/2017 | + + + | S/P lumbar fusion | 05/05/2016 | + + + | Lumbar radiculopathy/neurogenic claudication | 03/27/2015 | + + + | Spinal stenosis, lumbar | 03/27/2015 | + + + | Sacralization of lumbar vertebra | 03/27/2015 | + + + | Facet arthritis of lumbar region | 03/27/2015 | + + + | Spondylolisthesis | 03/27/2015 | + + + | Seroma | 12/19/2013 | + + + | Hyperlipidemia | 08/15/2013 | + + + | S/P CABG x 2V | 05/21/2013 | + + + | Hypertension | [...] but doesn't wear them | + + Resolved Problems + + + + | Problem | Noted | Resolved | | | Date | Date | + + + + | Benign essential hypertension | 06/22/20 | | | | 19 | 9 | + + + + | Obesity, Class I, BMI 30-34.9 | 10/11/20 | | | | 15 | 9 | + + + + Encounters +--------+ + + + + | Date | Type | Specialty | Care Team | Description | +--------+ + + + + | 07/25/ | Surgery | | Rico Grubbs MD | Right distal biceps | | 2018 | | | | tendon repair with | | | | | | possible allograft | +--------+ + + + + | 07/25/ | Anesthesia | | Mario Hernandez | | | 2019 | Event | | DO Seamus | | +--------+ + + + + | 07/25/ | Hospital | | Rico Grubbs MD | ASHD | | 2019 | Encounter | | | (arteriosclerotic | | | | | | heart disease) | | | | | | (Primary Dx) | +--------+ + + + + | 07/04/ | Hospital | Radiology | Miguelito Chung | Tear of biceps | | 2018 | Encounter | | JOAQUINA Vicente | muscle, right, | | | | | | sequela; Right elbow | | | | | | pain | +--------+ + + + + | 06/22/ | Orders Only | | Provider, | Atherosclerotic | | 2018 | | | MD Neris | heart disease of | | | | | | [place] coronary | | | | | | artery without | | | | | | angina pectoris; | | | | | | Pure | | | | | | hypercholesterolemia | +--------+ + + + + from Last 3 Months Family History + + + + + | Medical History | Relation | Name | Comments | + + + + + | Cancer | Brother | | ? | + + + + + | [...] + + | Early | Maternal | [place] | | | | Uncle | | | + + + + + | Heart disease | Maternal | Stefan | | | | Uncle | | | + + + + + | Brain aneurysm | Maternal | Ravi | | | | Uncle | | | + + + + + | COPD | Mother | chf | | + + + + + | Emphysema | Mother | chf | | + + + + + | Heart disease | Mother | chf | | + + + + + | Hypertension | Mother | chf | | + + + + + | Tuberculosis | Paternal | Jose Angel | | | | Uncle | | | + + + + + + + + + + | Relation | Name | Status | Comments | + + + + + | Brother | | | | + + + + + | Brother | Erick | | Cancer | | | | (Age | | | | | 68) | | + + + + + | Brother | Benjamine | Alive | | + + + + + | Father | | | | + + + [...] + + + | Maternal Uncle | [place] | | Accident | | | | [...] + + + + | Mother | chf | | | + + + + + | Paternal Aunt | Amisha | | | + + + + + | Paternal Grandfather | Stefan | | | | | | (Age | | | | | 77) | | + + + + + | Paternal Grandmother | Antonia | | | | | | (Age [...] + + | Pulse | 67 | 07/25/2019 1330 PDT | + + + + | Temperature | 36.1 C (97 F) | 07/25/2019 1200 PDT | + + + + | Respiratory Rate | 16 | 07/25/2019 1330 PDT | + + + + | Oxygen Saturation | 95% | 07/25/2019 1330 PDT | + + [...] | Body Mass Index | 28.69 | 07/25/201953 PDT | + + + + Plan of Treatment + + + + + | Health Maintenance | Due Date | Last Done | Comments | + + + + + | Vaccine: | | | | | Dtap/Tdap/Td (1 - | 3 | | | | Tdap) | | | | + + + + + | Colorectal Cancer | | | | | Screening | 4 | | | | (Colonoscopy) | | | | + + + + + | Vaccine: Zoster (1 | | | | | of 2) | 4 | | | + + + + + | AAA Screening | | | | | | 9 | | | + + + + + | Vaccine: | | 09/22/2017 | | | Pneumococcal 65+ | 8 | | | | Low/Medium Risk (2 | | | | | of 2 - PCV13) | | | | + + + + + | Adult Annual | | | | | Wellness Visit | 9 | | | + + + + + | Vaccine: Influenza | | | | | (#1) | 9 | | | + + [...] / Lot | + +------+--------+ +--------+--------+--------+ | Pacing Wire Dual | | N/A: | | | 08/22/ | 030-00 | | 030-005 - | | Heart | | | 2016 | 5 | | [id number]: Qty: 1 on | | | | | | /[id number] | | 08/10/2013 by Shmuel Sierra, | | | | | | 155 | | MD | | | | | | | + +------+--------+ +--------+--------+--------+ | Graft Infuse Bone Kit Xxs - | | Left: | SOFAMOR | | 04/21/ | [id number] | | [id number]: Qty: 1 on | | Back | DANEK - DIV | | 2015 | 0 / | | 10/14/2015 by Eric Gonzales, | | | MEDTRONIC | | | /[id number] | | MD | | | - SFDK | | | [id number] | + +------+--------+ +--------+--------+--------+ | Algrft Sanjana Espinoza 5cc Dbm | | Left: | OSTEOTECH - | | 06/10/ | [id number] | | - [id number]: Qty: | | Back | OSTT | | 2017 | /[id number] | | 1 on 10/14/2015 by Eric Gonzales | | | | | | 5-057 | | MD Mane | | | | | | / | + +------+--------+ +--------+--------+--------+ | Chips Cancellous 15cc - | | Left: | OSTEDELPHINECH - | | 03/11/ | [id number] | | [id number]: Qty: 1 | | Back | OSTT | | 2019 | | | on 10/14/2015 by Eric Gonzales | | | | | | /[id number] | | MD Mane | | | | | | 9-045 | | | | | | | | / | + +------+--------+ +--------+--------+--------+ | Imp Spn Intbdy Xlw | | Left: | NUVASIVE - | | | [id number] | | [id number] - | | Back | NVSV | | | / | | [id number]: Qty: 1 on | | | | | | | | 10/14/2015 by Eric Gonzales, | | | | | | | | | | | | | | | + +------+--------+ +--------+--------+--------+ | Screw Polyax Prcpt 7.5x50mm - | | Left: | NUVASIVE - | | | [id number] | | [id number]: Qty: 4 | | Back | NVSV | | | 0A / / | | on 10/14/2015 by Eric Gonzales | | | | | | | | A, MD | | | | | | | + +------+--------+ +--------+--------+--------+ | Jd Ti Prebent Lordtc 45mm - | | Left: | NUVASIVE - | | | [id number] | | [id number]: Qty: 2 on | | Back | NVSV | | | 5 / | | 10/14/2015 by Eric Gonzales, | | | | | | | | MD | | | | | | | + +------+--------+ +--------+--------+--------+ | Screw Set - | | Left: | NUVASIVE - | | | [id number] | | [id number]: Qty: 4 on | | Back | NVSV | | | 0 / / | | 10/14/2015 by Eric Gonzales, | | | | | | | | MD | | | | | | | + +------+--------+ +--------+--------+--------+ Procedures + +--------+ + + + | Procedure Name | Priori | Date/Time | Associated Diagnosis | Comments | | | ty | | | | + +--------+ + + + | ANE NERVE BLOCK | Routin | 07/25/2019 | | Results for this | | CATHETER NOTE | e | 10:03 PDT | | procedure are in the | | | | | | results section. | + +--------+ + + + | ANE AIRWAY NOTE | Routin | 07/25/2019 | | Results for this | | | e | 10:02 PDT | | procedure are in the | [...] | + +--------+ + + + | MRI ELBOW RIGHT WO | Routin | 07/04/2019 | Tear of biceps | Results for this | | CONTRAST | e | 16:49 PDT | muscle, right, | procedure are in the | | | | | sequela Right elbow | results section. | | | | | pain | | + +--------+ + + + from Last 3 Months Results Nerve Block (07/25/2019 10:03 PDT) + [...] | Procedure Note | + + | McGirr, Mario Seamus, DO - 07/25/2019 1003 PDT Perineural Procedure Note07/25/2019 [...] any additional medication documentation. | + + Hemoglobin (07/25/2019 8:46 PDT) + +-------+ + + + | Component | Value | Ref Range | Performed | Pathologist | | | | | At | Signature | + +-------+ + + + | Hemoglobin | 13.7 | 13.5 - 18.0 | [facility] | | | | | g/dL | [facility] | | | | | | [facility] [...] | + + + + + | MIKE KEENAN. | [address] | [place] | [phone] | | [facility] | | [id number] | | | - LABORATORY | | [...] by | | | | | | ALEXIS RODRIGUEZ MD ([id number]) | | | | | | on [...] | | | + +---------+ + + MRI Elbow Right wo Contrast (07/04/2019 16:49 PDT) + + | Specimen | + + | | + + + + + | Narrative | Performed At | + + + | MRI ELBOW RIGHT WO CONTRAST 07/04/2019 4:30 PM HISTORY: Right | [facility] | | elbow pain. COMPARISON: None. PROTOCOL: Axial proton density | | | fat sat, axial proton density, coronal proton density fat sat, | | | coronal T1, coronal STIR, sagittal proton density fat sat. | | | FINDINGS: High-grade partial tear of the distal biceps tendon with | | | disruption of the tendon fibers at its attachment to the radial | | | tuberosity. No convincing evidence for disruption of the lacertus | | | fibrosis. Approximately 1.5-2.0 cm of retraction. Some of the long | | | head of the biceps tendon fibers appear to have retracted to the | | | level of the antecubital fossa. Partial tear of the short head biceps | | | tendon fibers attaching more distally and along the origin/distal | | | aspect of the radial tuberosity The distal brachialis and triceps | | | tendons are normal with normal attachment. Partial/high-grade | | | tear at the humeral margin of the radial collateral ligament. Mild | | | fluid signal at the common extensor bundle tendon humeral origin is | | | compatible with a partial tear with the majority of tendon fibers | | | remaining intact. The ulnar collateral ligament and lateral ulnar | | | collateral ligament are intact. The annular ligament has a normal | | | appearance. Articular cartilages are normal. There is normal | | | osseous signal. Joint fluid is physiologic. Imaged musculature | | | demonstrates normal signal. The radial, median, and ulnar nerves | | | are normal. IMPRESSION - High-grade likely partial tear of the | | | distal biceps tendon with disruption of the tendon fibers at its | | | attachment to the radial tuberosity. No convincing evidence for | | | disruption of the lacertus fibrosis. Approximately 1.5-2.0 cm of | | | retraction. Some of the long head of the biceps tendon fibers appear | | | to have retracted to the level of the antecubital fossa. Partial | | | tear of the short head biceps tendon fibers attaching more distally | | | and along the origin/distal aspect of the radial tuberosity. | | | Partial/high-grade tear at the humeral margin of the radial collateral | | | ligament. Mild fluid signal at the common extensor bundle | | | tendon humeral origin is compatible with a partial tear with the | | | majority of tendon fibers remaining intact. Dictated and Signed | | | by: Josh Hough MD Electronically signed: 07/05/2019 8:14 AM | | + + + + + | Procedure Note | + + | Richar, Rad Results In - 07/05/2019 0817 PDT MRI ELBOW RIGHT WO CONTRAST 07/04/2019 4:30 | | PM HISTORY: Right elbow pain.COMPARISON: None.PROTOCOL: Axial proton density fat sat, | | axial proton density, coronal protondensity fat sat, coronal T1, coronal STIR, sagittal | | proton density fat sat.FINDINGS:High-grade partial tear of the distal biceps tendon with | | disruption of thetendon fibers at its attachment to the radial tuberosity. No | | convincing evidencefor disruption of the lacertus fibrosis. Approximately 1.5-2.0 cm of | | retraction.Some of the long head of the biceps tendon fibers appear to have retracted | | tothe level of the antecubital fossa. Partial tear of the short head biceps tendonfibers | | attaching more distally and along the origin/distal aspect of the radialtuberosityThe | | distal brachialis and triceps tendons are normal with normal | | attachment.Partial/high-grade tear at the humeral margin of the radial collateral | | ligament.Mild fluid signal at the common extensor bundle tendon humeral origin | | iscompatible with a partial tear with the majority of tendon fibers remainingintact.The | | ulnar collateral ligament and lateral ulnar collateral ligament are intact.The annular | | ligament has a normal appearance.Articular cartilages are normal.There is normal osseous | | signal.Joint fluid is physiologic.Imaged musculature demonstrates normal signal.The | | radial, median, and ulnar nerves are normal.IMPRESSION -High-grade likely partial tear | | of the distal biceps tendon with disruption ofthe tendon fibers at its attachment to the | | radial tuberosity. No convincingevidence for disruption of the lacertus fibrosis. | | Approximately 1.5-2.0 cm ofretraction. Some of the long head of the biceps tendon fibers | | appear to haveretracted to the level of the antecubital fossa. Partial tear of the | | short head biceps tendon fibers attaching more distally andalong the origin/distal | | aspect of the radial tuberosity.Partial/high-grade tear at the humeral margin of the | | radial collateral ligament.Mild fluid signal at the common extensor bundle tendon | | humeral origin iscompatible with a partial tear with the majority of tendon fibers | | remainingintact.Dictated and Signed by: Josh Hough MD Electronically signed: | | 07/05/2019 8:14 AM | | | |Articular cartilages are normal. | | | |There is normal osseous signal. | | | |Joint fluid is physiologic. | | | |Imaged musculature demonstrates normal signal. | | | |The radial, median, and ulnar nerves are normal. | | | |IMPRESSION - | |High-grade likely partial tear of the distal biceps tendon with disruption of | |the tendon fibers at its attachment to the radial tuberosity. No convincing | |evidence for disruption of the lacertus fibrosis. Approximately 1.5-2.0 cm of | |retraction. Some of the long head of the biceps tendon fibers appear to have | |retracted to the level of the antecubital fossa. | | | |Partial tear of the short head biceps tendon fibers attaching more distally and | |along the origin/distal aspect of the radial tuberosity. | | | |Partial/high-grade tear at the humeral margin of the radial collateral ligament. | | | | | |Mild fluid signal at the common extensor bundle tendon humeral origin is | |compatible with a partial tear with the majority of tendon fibers remaining | |intact. | | | |Dictated and Signed by: Josh Hough MD | | Electronically signed: 07/05/2019 8:14 AM | + + + +---------+ + + | Performing | Address | City/State/Zipcode | Phone Number | | Organization | | | | + +---------+ + + | [facility] | | | | + +---------+ + + from Last 3 Months Insurance + +--------+ +--------+ [...] +--------+ +---------+--------+ | MEDICARE | MEDICA | [id number] | | [phone] | | Medica | | | RE | | 009-Pr | 5 | | re | | | PART A | | esent | | | | | | AND B | | | | | | + +--------+ +--------+ +---------+--------+ | AARP | AARP | [id number] | 11/22/19 | [phone] | | Indemn [...] Person | Self | [birth year] | [address] [facility] [address] | | [place]orgette | al/Fam | | 1945 | [phone] | [place] | | | [place] | | | [address] (Home) | [phone] | + +--------+ +--------+ + + Advance Directives Patient has advance care planning documents, and code status on file. For more information, please contact:[facility] [place] [address] + + + + + | Code Status | Date | Date | Comments | | | Activated | Inactivated | | + + + + + | Full Code | 07/25/2019 | 07/25/2019 | | | | 12:35 | 16:14 | | + + + + + + + + +---+ | | | | | + + + +---+ | Full Code | 10/14/2015 | 10/16/2015 | | | | 15:34 | 13:13 | | + + + +---+
--- OUTSIDE RECORDS SUMMARY | ~2019-08-28 | XMS | Encounter Summary ---
Demographics + + + | Address | [address] | | | [place] [address] | + + + | Home Phone | | + + + | Preferred Language | Unknown | + + + | Marital Status | Single | + + + | Cheondoism Affiliation | Unknown | + + + | Race | Unknown | + + + | Ethnic Group | Other Race | + + + Author + + + | Author | [facility] | + + + | Organization | [facility] | + + + | Address | Unknown | + + + | Phone | Unavailable | + + + Care Team Providers + +------+ + | Care Spiral Winder Name | Role | Phone | + [...] [address] | | | | | | [place], [place] | | | | | | [id number] | | | | | | | [...] + + | [facility] | [address] | [place] [address] | | | DERMATOPATHOLOGY | Bharathi Cross | | | + + + + + documented in this encounter Visit Diagnoses Not on filedocumented in this encounter"
--- OUTSIDE RECORDS SUMMARY | ~2019-08-28 | XMS | Clinical Summary ---
Demographics + + + | Address | [address] | | | [place] [address] | + + + | Home Phone | | + + + | Preferred Language | Unknown | + + + | Marital Status | Single | + + + | Church Affiliation | Unknown | + + + | Race | Unknown | + + + | Ethnic Group | Other Race | + + + Author + + + | Author | [facility] | + + + | Organization | [facility] | + + + | Address | Unknown | + + + | Phone | Unavailable | + + + Care Team Providers + +------+ + | Care Automatic Brine Mixer Operator Name | Role | Phone | + +------+ + PCP | Unavailable | + +------+ + Source Comments [facility] is fully live on both [facility] and [facility] Allergies Not on File Medications Not on file Active Problems Not on file Social History + +-------+ +--------+------+ | Tobacco [...] | + + Last Filed Vital Signs Not on file Plan of Treatment + + + + + | Health Maintenance | Due Date | Last Done | Comments | + + + + + | Pneumococcal | | | | | vaccination (1 of 2 | 9 | | | | - PCV13) | | | | + + + + + | Influenza (Flu) | | | | | vaccination (#1) | 9 | | | + + + + + Results Not on filefrom Last 3 Months Insurance + +--------+ +--------+-------+---------+------+ | Payer | Benefi | Subscriber | Effect | Phone | Address | Type | | | t Plan | ID | maria elena | | | | | | / | | Dates | | | | | | Group | | | | | | + +--------+ +--------+-------+---------+------+ | UHC MEDICARE | UHC | xxxxxxxxx | | | | HMO | | COMPLETE HMO | MEDICA | | 009-Pr | | | | | | RE | | esent | | | | | | COMPLE | | | | | | | | TE HMO | | | | | | + +--------+ +--------+-------+---------+------+ + +--------+ +--------+ + + | Guarantor Name | Accoun | Relation to | Date | Phone | Billing Address | | | t Type | Patient | of | | | | | | | | | | + +--------+ +--------+ + + | Jc Mejia | Person | Self [birth year] | [address] | | | al/Fam | | 1945 | [phone] | [place] | | | [place] | | | [address] (Home) | [phone] | + +--------+ +--------+ + +"
--- OUTSIDE RECORDS SUMMARY | ~2019-08-28 | XMS | Clinical Summary ---
Demographics + + + | Address | [address] | | | [place] [address] | + + + | Home Phone | | + + + | Preferred Language | Unknown | + + + | Marital Status | Single | + + + | Taoism Affiliation | Unknown | + + + | Race | Unknown | + + + | Ethnic Group | Other Race | + + + Author + + + | Author | [facility] | + + + | Organization | [facility] | + + + | Address | Unknown | + + + | Phone | Unavailable | + + + Care Team Providers + +------+ + | Care Leather Sorter Name | Role | Phone | + +------+ + PCP | Unavailable | + +------+ + Source Comments EDEL is fully live on both [facility] Ambulatory and [facility] InPatient.[facility] Allergies Not on File Medications Not on [...] shaheed | | | 3 (Home) | [address] | + +--------+ +--------+ + +"
--- OUTSIDE RECORDS SUMMARY | ~2019-08-28 | XMS | Encounter Summary ---
Demographics + + + | Address | [address] | | | [place] [address] | + + + | Home Phone | | + + + | Preferred Language | Unknown | + + + | Marital Status | | + + + | Roman Catholic Affiliation | Unknown | + + + | Race | Unknown | + + + | Ethnic Group | Unknown | + + + Author + + + | Author | [facility] | | | and [place] | + + + | Organization | [facility] | | | and [place] | + + + | Address | Unknown | + + + | Phone | Unavailable | + + + Support + + +---------+ + | Name | Relationship | Address | Phone | + + +---------+ + | Kentno Mejia | ECON | Unknown | | + + +---------+ + | Tenisha Shetty | ECON | Unknown | | + + +---------+ + Care Team Providers + +------+ + | Care Underground Supervisor Name | Role | Phone | + [...] | | | | sequela | | [address] | | | | | Procedures | | Phone: | | | | | [place] RE[place] | | [phone] | | | | | BI/TRICEPS | | Fax: | | | | | TENDON,DISTA | | [phone] | | | | | L Right [...] + + | 07/25/ | Hospital | [facility] | Rico Grubbs MD | ASHD | | 2019 | Encounter | MED CTR OR INTRA OP | [address] | (arteriosclerotic | | | | [address] | [place], [place] | heart disease) | | | | [place], [place] | [address] | (Primary Dx) | | | | [address] | [phone] | | | | | [phone] | | | +--------+ + + + [...] + | Oxygen Saturation | 95% | 07/25/20190 PDT | + + + + | Inhaled Oxygen | - | - | | Concentration | | | + + + + | Weight | 85.6 kg (188 lb 11.4 | 07/25/201953 PDT | | | oz) | | + + + + | Height | 172.7 cm (5' 8") | 07/25/201953 PDT | + + + + | Body Mass Index | 28.69 | 07/25/201953 PDT | + + + + documented [...] the office with any questions or concerns. [phone] Ext [phone] - You will be given additional instructions [...] become swollen, cold, blue, numb, or tingly [facility] Patient Opioid Handout for Acute or [...] struggling with addiction call our office and [facility] at [phone]. Secure Storage Prescriptions should be stored out [...] program if available. ? Take Back Program: https://www.Next Performanceion.Complex MediaoQQTechnology.gov/drug_disposal/takeback/ National P rescription Drug Take Back Day: February ? To find an authorized local chart collector contact the [facility] Office of Diversion Control s Reg istration Call Center at ? Call your local pharmacy for recommendations. ? Search for a drug disposal location near you on the [place] diversion control division search engine: https://apps.Xtreme Poweriversion.Complex MediaoQQTechnology.gov/pubdispsearch/spring/main?execution=e1s1 At the time of printing: Rupa Pearson in [place], Ellis in [place], Nir templeton in [place] How to Dispose of Medicines at Home: Taken from the FDA guide How to Dispose of Unused Medicines https://www.fda.gov/ForConsumers/ConsumerUpdates/tpp289308.htm Disposing medicines in household trash: Almost all [...] | | | | | | Refills: 3Arenettas | | | | | | | [...] | | | | | Refills; 1 [place] | | | | | | | Seema Jewell | | | | | | | [...] | | | | Refills; 0 Dougie Meza | | | | | Radhames Meza [...] + | [facility] | [address] | [place] | [phone] | | [facility] | | [address] | | | - LABORATORY | | [...] | | | | JENNIFER SWEENEY, A[place] ([id number]) | | | | | | on [...] + | Diagnosis | + + | ASHD (arteriosclerotic heart disease) - Primary Coronary atherosclerosis of | | unspecified type of vessel, oneida or graft | + + documented in this encounter [...] HOURS PRN, | | | Itching, Starting 07/25/19 at | | | 1235, Oral route is preferred., | | | Post-op/Phase II | | + +---+ | | | + +---+ | diphenhydrAMINE (BENADRYL) | | | tablet 25 mg 25 mg, Oral, EVERY | | | 4 HOURS PRN, Itching, Starting | | | 07/25/19 at 1235, Oral route is | [...] One week or | | | longer, btvgkz-hks-ebypm use of | | | at least [...] | 300 mg 300 mg, Oral, ONCE, Wed | | 19 8:28 | | | [...] One week or longer, | | | ytzfbf-fmu-fhqfk use of at least | | | [...] ONCE | | | PRN, Nausea, Starting 07/25/19 | | | at 1146, For 1 dose, | | | Recovery/Phase I | | + +---+ | | | + +---+ documented in this encounter
--- OUTSIDE RECORDS SUMMARY | ~2019-08-28 | XMS | Encounter Summary ---
Demographics + + + | Address | [address] | | | [place] [address] | + + + | Home Phone | | + + + | Preferred Language | Unknown | + + + | Marital Status | | + + + | Religion Affiliation | Unknown | + + + | Race | Unknown | + + + | Ethnic Group | Unknown | + + + Author + + + | Author | [facility] | | | and [place] | + + + | Organization | [facility] | | [...] Team Providers + +------+ + | Care Tying Machine Operator Name | Role | Phone | + +------+ + | Radhames Constantino MD | PCP | Unavailable | + +------+ + Encounter Details +--------+ + + + + | Date | Type | Department | Care Team | Description | +--------+ + + + + | 06/22/ | Orders Only | [facility] | Provider, | Atherosclerotic | | 2019 | | SYSTEM GENERIC OP | MD [address] | heart disease of | | | | CONVERSION [address] | [place] | pen[place]ot coronary | | | | [address] [place], [place] | [place] [address] | artery without | | | | [address] | | angina pectoris; | | | | [phone] | | Pure | | | | [...] | 05/09/2019, Expires: | | | | [place] coronary | 05/09/2020 | | | | artery without | | | | | angina pectoris | | | | | Pure | | | | | hypercholesterolemia | | + +--------+ + + documented as of this encounter Visit Diagnoses + + | Diagnosis | + + | Atherosclerotic heart disease of [place] coronary artery without angina pectoris | | Coronary atherosclerosis of [place] coronary artery | + + | Pure hypercholesterolemia | + + documented in this encounter"
--- OUTSIDE RECORDS SUMMARY | ~2019-08-28 | XMS | Clinical Summary ---
Demographics + + + | Address | [address] [facility] | | | [place] [address] | + + + | Home Phone | | + + + | Preferred Language | Unknown | + + + | Marital Status | | + + + | Bahai Affiliation | Unknown | + + + | Race | Unknown | + + + | Ethnic Group | Unknown | + + + Author + + + | Author | [facility] | | | and [place] | + + + | Organization | [facility] | | | [...] Team Providers + +------+ + | Care Medical Assisting Instructor Name | Role | Phone | + [...] | | | | | | | [id number] Active 60 | | | | | [...] + + + + | CAD in tolowa dee-ni' artery | 02/03/2017 | + + + [...] of | | | | | | tolowa dee-ni' coronary | | | | | | [...] + + | Early | Maternal | Harding | | | | Uncle | | [...] + + + | Maternal Uncle | Harding | | Accident | | | | [...] | | 2016 | 5 | | [id number]: Qty: 1 on | | | | | | /[id number] | | 08/10/2013 by Shmuel Sierra, | | | | | | 155 | | MD | | | | | | | + +------+--------+ +--------+--------+--------+ | Graft Infuse Bone Kit Xxs - | | Left: | SOFAMOR | | 04/21/ | [id number] | | [id number]: Qty: 1 on | | Back | DANEK - DIV | | 2015 | 0 / | | 10/14/2015 by Eric Gonzales, | | | MEDTRONIC | | | /[id number] | | MD | | | - SFDK | | | [id number] | + +------+--------+ +--------+--------+--------+ | Algrft Sanjana Espinoza 5cc Dbm | | Left: | OSTEOTECH - | | 06/10/ | 88732 | | - [id number]: Qty: | | Back | OSTT | | 2017 | /[id number] | | 1 on 10/14/2015 by Eric Gonzales | | | | | | 5-057 | | MD Mane | | | | | | / | + +------+--------+ +--------+--------+--------+ | Chips Cancellous 15cc - | | Left: | OSTEDELPHINECH - | | 03/11/ | [id number] | | [id number]: Qty: 1 | | Back | OSTT | | 2019 | | | on 10/14/2015 by Eric Gonzales | | | | | | /[id number] | | MD Mane | | | | | | 9-045 | | | | | | | | / | + +------+--------+ +--------+--------+--------+ | Imp Spn Intbdy Xlw | | Left: | NUVASIVE - | | | [id number] | | [id number] | | Back | NVSV | | | / | | [id number]: Qty: 1 on | | | | | | | | 10/14/2015 by Eric Gonzales, | | | | | | | | | | | | | | | + +------+--------+ +--------+--------+--------+ | Screw Polyax Prcpt 7.5x50mm - | | Left: | NUVASIVE - | | | [id number] | | [id number]: Qty: 4 | | Back | NVSV | | | 0A / / | | on 10/14/2015 by Eric Gonzales | | | | | | | | A, MD | | | | | | | + +------+--------+ +--------+--------+--------+ | Jd Ti Prebent Lordtc 45mm - | | Left: | NUVASIVE - | | | [id number] | | [id number]: Qty: 2 on | | Back | NVSV | | | 5 / | | 10/14/2015 by Eric Gonzales, | | | | | | | | MD | | | | | | | + +------+--------+ +--------+--------+--------+ | Screw Set - | | Left: | NUVASIVE - | | | [id number] | | [id number]: Qty: 4 on | | Back | [...] [address] | [place] | [phone] | | [facility] | | [address] | | | - LABORATORY | | [...] | | | | [place] RODRIGUEZ MD ([id number]) | | | | | | on [...] +--------+ +---------+--------+ | MEDICARE | MEDICA | [id number] | | [phone] | | Medica | | | RE | | 009-Pr | 5 | | re | | | PART A | | esent | | | | | | AND B | | | | | | + +--------+ +--------+ +---------+--------+ | AARP | AARP | [id number] | 11/22/19 | [phone] | | Indemn [...] | Self | [birth year] | | [address] [facility] [address] | | [place] | al/Fam | | 1945 | [phone] | [place] | | | shaheed | | | 3 (Home) | [address] | + +--------+ +--------+ + + Advance Directives Patient has advance care planning documents, and code status on file. For more information, please contact:[facility] [place] [address] + + + + + | Code [...]
--- OUTSIDE RECORDS SUMMARY | ~2019-08-28 | XMS | Encounter Summary ---
Demographics + + + | Address | [address] | | | [place] [address] | + + + | Home Phone | | + + + | Preferred Language | Unknown | + + + | Marital Status | | + + + | Sabianism Affiliation | Unknown | + + + | Race | Unknown | + + + | Ethnic Group | Unknown | + + + Author + + + | Author | [facility] | | | and [place] | + + + | Organization | [facility] | | | and [place] | + + + | Address | Unknown | + + + | Phone | Unavailable | + + + Support + + +---------+ + | Name | Relationship | Address | Phone | + + +---------+ + | Kenton Mejia | ECON | Unknown | | + + +---------+ + | DiogenesTenisha | ECON | Unknown | | + + +---------+ + Care Team Providers + +------+ + | Care Clinic Office Assistant Name | Role | Phone | + +------+ + | Radhames Constantino MD | PCP | Unavailable | + +------+ + Reason for Referral Diagnostic/Screening (Routine) + +--------+ + + + + | Status | Reason | Specialty | Diagnoses / | Referred By | Referred To | | | | | Procedures | Contact | Contact | + +--------+ + + + + | Pending | | Radiology | Diagnoses | Sheldon | KILLIAN | | Review | | | Tear of | Miguelito | PROVIDELULAE | | | | | biceps | JOAQUINA Vicente | SHADI | | | | | muscle, | [address] | MEDICAL | | | | | right, | [address] [place] | CENTER [address] | | | | | sequela | [place], [place] | [place] | | | | | Right elbow | [address] | [place], | | | | | pain | Phone: | [place] [address] | | | | | Procedures | [phone] | Phone: | | | | | MRI Elbow | Fax: | [phone] | | | | | Right wo | [phone] | Fax: | | | | | Contrast | | [phone] | + +--------+ + + + + Diagnostic/Screening (Routine) + +--------+ + + + + | Status | Reason | Specialty | Diagnoses / | Referred By | Referred To | | | | | Procedures | Contact | Contact | + +--------+ + + + + | Pending | | Radiology | Diagnoses | Shaver, | [facility] | | Review | | | Tear of | Miguelito | [place] | | | | | biceps | JOAQUINA Vicente | [facility] | | | | | muscle, | [address] | MEDICAL | | | | | right, | [place] | CENTER [address] | | | | | sequela | [place], [place] | [place] | | | | | Right elbow | [address] | [place], | | | | | pain | Phone: | [place] [address] | | | | | Procedures | [phone] | Phone: | | | | | MRI Elbow | Fax: | [phone] | | | | | Right wo | [phone] | Fax: | | | | | Contrast | | [phone] | + +--------+ + + + + Reason for Visit Diagnostic/Screening (Routine) + +--------+ + + + + | Status | Reason | Specialty | Diagnoses / | Referred By | Referred To | | | | | Procedures | Contact | Contact | + +--------+ + + + + | Pending | | Radiology | Diagnoses | Sheldon, | KILLIAN | | Review | | | Tear of | Miguelito | RADHAE | | | | | biceps | JOAQUINA Vicente | [facility] | | | | | muscle, | [address] | MEDICAL | | | | | right, | [place] | CENTER [address] | | | | | sequela | [place], [place] | [place] | | | | | Right elbow | [address] | [place], | | | | | pain | Phone: | [place] [address] | | | | | Procedures | [phone] | Phone: | | | | | MRI Elbow | Fax: | [phone] | | | | | Right wo | [phone] | Fax: | | | | | Contrast | | [phone] | + +--------+ + + + + Encounter Details +--------+ + + + + | Date | Type | Department | Care Team | Description | +--------+ + + + + | 07/04/ | Hospital [facility] | Miguelito Chung | Tear of biceps | | 2019 | Encounter | MED CTR MRI [address] | JOAQUINA Vicente [address] | muscle, right, | | | | [place], | [address] [place] | sequela; Right elbow | | | | [place] [address] | [place] [address] | pain | | | | [phone] | [phone] | | | | | | | [...] + + documented as of this encounter Medications at Time of Discharge [...] | | | | | Refills: 12 [place] | | | | | | | [...] | | | | | Refills; 1 [place] | | | | | | | [...] +---------+ + + | amLODIPine | Take 5 mg by mouth | | 0 | | | | (NORVASC) 5 mg | Daily. | | | | 9 | | tablet | | | | | | + + + +---------+ + + | aspirin 81 mg EC | Take 81 mg by mouth | | 0 | | | | tablet | Daily. | | | | 9 | + + + +---------+ + + | atenolol | Take 50 mg by mouth | | 0 | | | | (TENORMIN) 50 mg | Daily. | | | | 9 | | tablet | | | | | | + + + +---------+ + + | clindamycin | Apply topically 2 | | 0 | | | | (CLEOCIN T) 1% | times daily. | | | | 9 | | external solution | | | | | | + + + +---------+ + + | doxycycline | Take 50 mg by mouth | | 0 | | | | (MONODOX) 50 MG | 2 times daily. | | | | 9 | | capsule | | | | | | + + + +---------+ + + | doxycycline | | | 0 | 10/16/20 | | | (MONODOX) 50 MG | | | | 16 | 9 | | capsule | | | | | | + + + +---------+ + + | fish oil 1,000 mg | Take 1 capsule by | | 0 | | | | capsule | mouth Daily. Fish | | | | 9 | | | Oil 1000 MG Oral | | | | | | | Capsule | | | | | + + + +---------+ + + | fish oil 1,000 mg | Take by mouth | | 0 | | | | capsule | Daily. | | | | 9 | + + + +---------+ + + | fish oil 1,000 mg | Take 1,000 mg by | | 0 | | | | capsule | mouth Daily. | | | | 9 | + + + +---------+ + + | | Take 0.5 tablets by | | 0 | 11/30/19 | | | hydroCHLOROthiazide | mouth Daily. | | | 17 | 9 | | 25 mg tablet | Quantity: 45; | | | | | | | Refills 3 Dougie | | | | | | | Radhames Jewell; Start | | | | | | | 30-Nov-2016 Active | | | | | + + + +---------+ + + | | Take 12.5 mg by | | 0 | | | | hydrochlorothiazide | mouth Daily. | | | | 9 | | 25 mg tablet | | | | | | + + + +---------+ + + | Ivermectin | Daily. Soolantra 1% | | 0 | 08/14/20 | | | (SOOLANTRA) 1 % CREA | External Cream | | | 16 | 9 | | | Quantity: 1; | | | | | | | Refills: 3Scribcoco | | | | | | | Seema Jewell | | | | | | | 14-Aug-2016 Active | | | | | | | 30 GM Tube | | | | | + + + +---------+ + + | metroNIDAZOLE | Apply topically At | | 0 | 04/12/20 | | | (METROCREAM) 0.75 % | Bedtime. | | | 12 | 9 | | cream | MetroNIDAZOLE 0.75% | | | | | | | Cream Apply to | | | | | | | affected area face | | | | | | | Quantity; 1; | | | | | | | Refills: 12Anddagmar | | | | | | | Masood Jewell | | | | | | | 12-Apr-2012 Active | | | | | + + + +---------+ + + | Multiple | Take 1 tablet by | | 0 | | | | Vitamins-Minerals | mouth Daily. | | | | 9 | | (COMPLETE | | | | | | | MULTIVITAMIN/MINERAL | | | | | | | PO) | | | | | | + + + +---------+ + + | omeprazole | Take 20 mg by mouth | | 0 | | | | (PRILOSEC) 20 mg | every morning | | | | 9 | | capsule | (before breakfast). | | | | | + + + +---------+ + + | oxybutynin | Take 15 mg by mouth | | 0 | | | | (DITROPAN XL) 15 MG | Daily. | | | | 9 | | 24 hr tablet | | | | | | + + + +---------+ + + | potassium chloride | Take 1 tablet by | | 0 | 06/29/20 | | | (KLOR-CON M20) 20 | mouth Daily. | | | 14 | 9 | | mEq ER tablet | Quantity: 90; | | | | | | | Refills; 1 [place] | | | | | | | Radhames Jewell; Start | | | | | | | 29-Jun-2014 Active | | | | | + + + +---------+ + + | sildenafil | Take 1 tablet by | | 0 | 07/24/20 | | | (VIAGRA) 100 MG | mouth Daily as | | | 15 | 9 | | tablet | needed. Quantity: | | | | | | | 10; Refills: | | | | | | | 5Andrewjesu Ricci; | | | | | | | start 24-Jul-2015 | | | | | | | Active | | | | | + + + +---------+ + + | Simethicone (GAS-X | Take 1 tablet by | | 0 | | | | PO) | mouth Daily. | | | | 9 | + + + +---------+ + + | simethicone | Take 80 mg by mouth | | 0 | | | | (MYLICON) 80 mg | every 6 hours as | | | | 9 | | chewable tablet | needed for | | | | | | | Flatulence. | | | | | + + + +---------+ + + | tadalafil (CIALIS) | Take 5 mg by mouth | | 0 | | | | 5 MG tablet | as needed for | | | | 9 | | | Erectile | | | | | | | Dysfunction. | | | | | + + [...] | | + +--------+ + + + documented in this encounter Results MRI Elbow Right wo Contrast (07/04/2019 16:49 [...] + | Diagnosis | + + | Tear of biceps muscle, right, sequ[place] | + + | Right elbow pain Pain in joint, upper arm | + + documented in this encounter"
--- OUTSIDE RECORDS SUMMARY | ~2019-08-28 | XMS | Clinical Summary ---
Demographics + + + | Address | [address] | | | [place] [address] | + + + | Home Phone | | + + + | Preferred Language | Unknown | + + + | Marital Status | | + + + | Confucianist Affiliation | Unknown | + + + | Race | Unknown | + + + | Ethnic Group | Unknown | + + + Author + + + | Author | [email or web address] (Historical as of | | | 07-08-19) | + + + | Organization | [email or web address] (Historical as of | | | 07-08-19) [...] Team Providers + +------+ + | Care Professional Development Manager Name | Role | Phone | [...] + + + Current Medications + + +--------+---------+------+------+-------+ | Prescription | Sig. | Disp. | Refills | Star | End | Statu | | | | | | t | Date | s | | | | | | Date | | | + + +--------+---------+------+------+-------+ | amLODIPine | Take 5 mg by mouth | | | | | Activ | | (NORVASC) 5 MG | daily. | | | | | e | | tablet | | | | | | | + + +--------+---------+------+------+-------+ | oxybutynin | Take 15 mg by mouth | | | | | Activ | | (DITROPAN XL) 15 MG | daily. | | | | | e | | 24 hr tablet | | | | | | | + + +--------+---------+------+------+-------+ | omeprazole | Take 20 mg by mouth | | | | | Activ | | (PRILOSEC) 20 MG | every morning before | | | | | e | | capsule | breakfast. | | | | | | + + +--------+---------+------+------+-------+ | tadalafil (CIALIS) | Take 5 mg by mouth | | | | | Activ | | 5 MG tablet | as needed. | | | | | e | + + +--------+---------+------+------+-------+ | fish oil-omega-3 | Take by mouth | | | | | Activ | | fatty acids 1000 MG | daily. | | | | | e | | capsule | | | | | | | + + +--------+---------+------+------+-------+ | Multiple | Take 1 tablet by | | | | | Activ | | Vitamins-Minerals | mouth daily. | | | | | e | | (MULTIVITAMIN WITH | | | | | | | | MINERALS) tablet | | | | | | | + + +--------+---------+------+------+-------+ | Multiple | Take 1 tablet by | | | | | Activ | | Vitamins-Minerals | mouth daily. | | | | | e | | (OCUVITE ADULT | | | | | | | | FORMULA PO) | | | | | | | + + +--------+---------+------+------+-------+ | Simethicone (GAS-X | Take 1 tablet by | | | | | Activ | | PO) | mouth daily. | | | | | e | + + +--------+---------+------+------+-------+ | atenolol | Take 50 mg by mouth | | | | | Activ | | (TENORMIN) 50 MG | daily. | | | | | e | | tablet | | | | | | | + + +--------+---------+------+------+-------+ | aspirin EC 81 MG | Take 81 mg by mouth | | | | | Activ | | EC tablet | daily. | | | | | e | + + +--------+---------+------+------+-------+ | doxycycline | Take 50 mg by mouth | | | | | Activ | | (MONODOX) 50 MG | 2 (two) times daily. | | | | | e | | capsule | | | | | | | + + +--------+---------+------+------+-------+ | clindamycin | Apply topically 2 | | | | | Activ | | (CLEOCIN T) 1 % | (two) times daily. | | | | | e | | external solution | | | | | | | + + +--------+---------+------+------+-------+ | doxazosin | Take 1 mg by mouth | | | | | Activ | | (CARDURA) 1 MG | nightly. | | | | | e | | tablet | | | | | | | + + +--------+---------+------+------+-------+ | rosuvastatin | Take 1 tablet by | 90 | 3 | 04/22 | | Activ | | (CRESTOR) 5 MG | mouth nightly. | tablet | | | 08/11 | e | | tablet | | | | | 20 | | + + +--------+---------+------+------+-------+ Active Problems + + + | Problem | Noted Date | + + + | CAD in [place] artery | 02/03/2017 | + + + | Seroma | 12/19/2013 | + + + | Hypertension | 08/15/2013 | + + + | Hyperlipidemia | 08/15/2013 | + + + Resolved [...] | 3 | + + + + Encounters +--------+ + + + + | Date | Type | Specialty | Care Team | Description | +--------+ + + + + | 06/06/ | Documentati | | Byron Celaya MA | Other (Lipid panel | | 2019 | on Only | | | from [facility]) | +--------+ + + + + from Last 3 Months Family History + + +------+ + | [...] + + + | Blood Pressure | 146/80 | 05/01/2019 11:26 AM PDT | + + + + | Pulse | 66 | 05/01/2019 11:26 AM PDT | + + + + | Temperature | 36.7 C (98 F) | 12/19/2013 11:10 AM PST | + + + + | Respiratory Rate | 16 | 05/01/2019 11:26 AM PDT | + + + + | Oxygen Saturation | 99% | 05/01/2019 11:26 AM PDT | + + + + | Inhaled Oxygen | - | - | | Concentration | | | + + + + | Weight | 86.2 kg (190 lb) | 05/01/2019 11:26 AM PDT | + + + + | Height | 175.3 cm (5' 9") | 05/01/2019 11:26 AM PDT | + + + + | Body Mass Index | 28.06 | 05/01/2019 11:26 AM PDT | + + + + Plan [...] | | 2016 | 5 | | [id number]: Qty: 1 on | | | | | | /[id number] | | 08/10/2013 by Shmuel Sierra, | | | | | | | [...] +------+-------+ + | MEDICARE | MEDICA | [id number] | | | [address] | | | RE | | | | [place] [address] | | | IP-OP | | | | | + +--------+ +------+-------+ + | [facility] | [place] | [id number] | | | | | | | [...] Self | [birth year] | Home: | [address] | | [place] | al/Rj | | 1945 | [phone] | [place] | | | shaheed | | | [phone] | [phone] | + +--------+ +--------+ + +
--- OUTSIDE RECORDS SUMMARY | ~2019-08-28 | XMS | Clinical Summary ---
Demographics + + + | Address | [address] | | | [place] [address] | + + + | Home Phone | | + + + | Preferred Language | Unknown | + + + | Marital Status | | + + + | Protestant Affiliation | Unknown | + + + | Race | Unknown | + + + | Ethnic Group | Unknown | + + + Author + + + | Author | [email or web address] (Historical as of | | | 07-08-19) | + + + | Organization | [email or web address] (Historical as of | | | 07-08-19) [...] Team Providers + +------+ + | Care Corridor Redevelopment Manager Name | Role | Phone | [...] | + + + | CAD in napaimute artery | 02/03/2017 | + + + [...] | | 2016 | 5 | | [id number]: Qty: 1 on | | | | | | /[id number] | | 08/10/2013 by Shmuel Sierra, | [...] +------+-------+ + | MEDICARE | MEDICA | [id number] | | | [address] | | | RE | | | | [place] [address] | | | IP-OP | | | | | + +--------+ +------+-------+ + | [facility] | UNITED | [id number] | | | | | | | [...] Self | [birth year] | Home: | [address] | | [place] | al/Rj | | 1945 | [phone] | [place] | | | shaheed | | | [phone] | + +--------+ +--------+ + +
--- OUTSIDE RECORDS SUMMARY | ~2019-08-28 | XMS | Encounter Summary ---
Demographics + + + | Address | [address] | | | [place] [address] | + + + | Home Phone | | + + + | Preferred Language | Unknown | + + + | Marital Status | | + + + | Taoist Affiliation | Unknown | + + + | Race | Unknown | + + + | Ethnic Group | Unknown | + + + Author + + + | Author | [facility] | | | and [place] | + + + | Organization | [facility] | | | [...] Team Providers + +------+ + | Care Corporate Training Manager Name | Role | Phone | [...] | | | | [place] | | [address] | | | | | Procedures | | Phone: | | | | | NE REINSERT | | [phone] | | | | | BI/TRICEPS | | Fax: | | | | | TENDON,DISTA | | [phone] | | | | | L Right [...] + + | 07/25/ | Hospital [facility] | Rico Grubbs MD | [facility] | | 2019 | Encounter | MED CTR OR INTRA OP | [address] | (arteriosclerotic | | | | [address] | [place], [place] | heart disease) | | | | [place], [place] | [address] | (Primary Dx) | | | | [address] | [phone] | | | | | [phone] | | | +--------+ + + + [...] the office with any questions or concerns. [phone] Ext [phone] - You will be given additional instructions [...] become swollen, cold, blue, numb, or tingly [facility] Patient Opioid Handout for Acute or Perioperative [...] struggling with addiction call our office and [facility] at [phone]. Secure Storage Prescriptions should be stored out [...] program if available. ? Take Back Program: https://www.United Allergy Servicesion.[place]ottaoApieron.gov/drug_disposal/takeback/ National P rescription Drug Take Back Day: February ? To find an authorized local accounts collector contact the COUNT INCLUDES [facility] Office of Diversion Control s Reg istration Call Center at ? Call your local pharmacy for recommendations. ? Search for a drug disposal location near you on the [place] diversion control division search engine: https://apps.Purple Harryiversion.[place]ieron.gov/pubdispsearch/spring/main?execution=e1s1 At the time of printing: Rupa Pearson in [place], Ellis in [place], Nir templeton in [place] How to Dispose of Medicines at Home: Taken from the FDA guide How to Dispose of Unused Medicines https://www.fda.gov/ForConsumers/ConsumerUpdates/ssq124440.htm Disposing medicines in household trash: Almost all [...] | | | | | Refills; 1 [address] | | | | | | | [...] + | [address] | [address] | [place] | [phone] | | [facility] | | [address] | | | - LABORATORY | | [...] | | | | JENNIFER SWEENEY, [place] ([id number]) | | | | | | on [...] of | | unspecified type of vessel, los coyotes or graft | + + documented in [...] One week or | | | longer, xzmijr-bzk-fxjjb use of | | | at least [...] One week or longer, | | | beglbe-vxp-vnlne use of at least | | | [...]
--- OUTSIDE RECORDS SUMMARY | ~2019-08-28 | XMS | Encounter Summary ---
Demographics + + + | Address | [address] | | | [place] [address] | + + + | Home Phone | | + + + | Preferred Language | Unknown | + + + | Marital Status | | + + + | Yazdanism Affiliation | Unknown | + + + | Race | Unknown | + + + | Ethnic Group | Unknown | + + + Author + + + | Author | [facility] | | | and [place] | + + + | Organization | [facility] | | | and [...] Team Providers + +------+ + | Care Steel Inspector Name | Role | Phone | [...] | | sequela | [place], [place] | [address] | | | | | Right elbow | [address] | [place], | | | | | pain | Phone: | [place] [address] | | | | | Procedures | [phone] | Phone: | | | | | MRI Elbow | Fax: | [phone] | | | | | Right wo | [phone] | Fax: | | | | | Contrast | | [phone] | + +--------+ + + + + [...] Review | | | Tear of | [place] | [facility] | | | | | biceps | JO[facility]QUINA Vicente | [facility] | | | | | muscle, | [address] | MEDICAL | | | | | right, | [facility] [place] | [facility]ENTER [address] | | | | | sequela | [place], [place] | [place] | | | | | Right elbow | [address] | [place], | | | | | pain | Phone: | [place] [address] | | | | | Procedures | [phone] | Phone: | | | | | MRI Elbow | Fax: | [phone] | | | | | Right wo | [phone] | Fax: | | | | | Contrast | | [phone] | + +--------+ + + + + [...] | | sequela | [place], [place] | [place] | | | | | Right elbow | [address] | [place], | | | | | pain | Phone: | [place] [address] | | | | | Procedures | [phone] | Phone: | | | | | MRI Elbow | Fax: | [phone] | | | | | Right wo | [phone] | Fax: | | | | | Contrast | | [phone] | + +--------+ + + + + Encounter Details +--------+ + + + + | Date | Type | Department | Care Team | Description | +--------+ + + + + | 07/04/ | Hospital | [facility] | Miguelito Chung | Tear of biceps | | 2019 | Encounter | MED CTR MRI [address] | [address] Vicente [address] | muscle, right, | | | | [place], | [address] [place] | sequela; Right elbow | | | | [place] [address] | [place] [address] | pain | | | | [phone] | [phone] | | | | | | | [...] | | | | | Refills: 12 [address] | | | | | | | [...] | | | | | Refills; 1 Fortun[address] | | | | | | | [...] | | | | | Refills; 3 Dougei | | | | | | | [...]
--- OUTSIDE RECORDS SUMMARY | ~2019-08-28 | XMS | Encounter Summary ---
Demographics + + + | Address | [address] | | | [place] [address] | + + + | Home Phone | | + + + | Preferred Language | Unknown | + + + | Marital Status | | + + + | Catholic Affiliation | Unknown | + + + | Race | Unknown | + + + | Ethnic Group | Unknown | + + + Author + + + | Author | [facility] (Historical as of | | | 07-08-19) | + + + | Organization | [facility] (Historical as of | | | 07-08-19) [...] Team Providers + +------+ + | Care Diabetologist Name | Role | Phone | + [...] 06/06/ | Documentati | [facility] | Byron Celaya MA | Other (Lipid panel | | 2019 | on Only | Cardiology [facility] | | from [facility]) | | | | [address] | | | | | | [place] | | | | | | [address] | | | | | | [phone] | | | +--------+ + + + [...]
[~2019-08-28 19:07] MED LIST changes: +AMLODIPINE BESY10 MG PO; +ATENOLOL50 MG PO; +EPIPEN 2-P0.3 MG/0.3 IM; +ROSUVASTATIN CAL5 MG PO
[2019-08-28] MEDS ORDERED: OMEPRAZOLE20 MG PO (19:21)
[2019-08-28] MEDS ORDERED: ASPIR 8181 MG PO (19:24)
--- NOTE | 2019-08-29 12:54 | EKG ---
[facility] [address] [facility] [place], [place] [address] Signed Sinus bradycardia Otherwise normal ECG When compared with ECG of 15-MAY-2019 12:29, T wave inversion no longer evident in Anterior leads Confirmed by REYNA HERNANDEZ DO ([id number]) on 08/29/2019 12:54:23 PM Electronically Signed By: REYNA HERNANDEZ DO 08/29/19 1254 PATIENT NAME: MAREN ROE Electrocardiogram DATE OF : 43 PHYSICIAN: REYNA HERNANDEZ DO REPORT #: [id number] REPORT IS CONFIDENTIAL AND NOT TO BE RELEASED WITHOUT AUTHORIZATION
== END 2019-08-28 20:40 | disposition home or self-care (01) ==
LOC: ED 19:07
DX: R47.1 Dysarthria and anarthria (principal); F10.129 Alcohol abuse with intoxication, unspecified; Z88.8 Allergy status to other drugs, medicaments and biological substances; Z79.82 Long term (current) use of aspirin; Z79.899 Other long term (current) drug therapy
CPT/HCPCS: 70450; 71045; 80053; 84484; 85025; 85610; 85730; 93005; 93010; 99285-25; G0480

== ENCOUNTER 2023-01-19 06:19 | Day surgery (SDC) | payer MEDICARE ==
[~2023-01-19] VITALS: Ht 172.7 cm; Wt 80.7 kg
[~2023-01-19 06:19] MED LIST changes: +CARDURA1 MG PO; +DOXYCYCLINE HY100 MG PO; +FISH OIL 1,0001 EAC6 PO; +GAS RELIEF125 MG PO; +OMEPRAZOLE20 MG PO
--- NOTE | 2023-01-19 08:37 | NUR ---
01/19/23 0837 Rosmery Burgess 0823 PT ARRIVED IN PACU AWAKE WITH NO C/O'S. ABD SOFT. 0835 SITTING UP IN BED SIPPING ON WATER.
--- NOTE | 2023-01-19 10:02 | OR ---
[facility] [address] [place], [place] [address] Signed DATE OF OPERATION: 01/19/2023 SURGEON: Malena Chavarria MD PREOPERATIVE DIAGNOSES: 1. Personal history of colonic polyps in 2016 at age 70. 2. Diverticulosis. 3. Moderate internal and external hemorrhoids. POSTOPERATIVE DIAGNOSES: 1. Moderate internal and external hemorrhoids. 2. Minimal sigmoid diverticulosis. 3. Long redundant left colon. 4. Angulation at 55 cm in left colon. 5. Biopsy of ileocecal valve. 6. 10 mm sessile polyp in distal right colon (snare, tattoo). 7. 4 mm polyp mid transverse colon. 8. 6 mm polyp at 105 cm in proximal of colon (snare). PROCEDURE: Colonoscopy with hot biopsy, snare polypectomy x2 and injection of tattoo x1. ESTIMATED BLOOD LOSS: None. INDICATIONS: Maren is a 77-year-old gentleman asked to see me for a followup colonoscopy. He thinks he has been through 4 colonoscopies at [facility] in [place], [place]. He believes this was with Dr. Miguelito Segura. To his knowledge, they were all negative. I helped him in 2016 at the age of 70. He had two small hyperplastic polyps removed. He had one small 5 mm tubular adenomatous polyp removed. He has a little diverticulosis in the sigmoid colon along with moderate-sized internal and external hemorrhoids. He had done well with Versed and fentanyl. We asked him to come back in 5 years. In the office, I had given him a pamphlet on colonoscopy. We reviewed the nature of the test. There is risk including, but not limited to gas bloating, crampy abdominal pain, bleeding, perforation requiring surgery, and missed diagnosis. He recalls the need for IV conscious sedation. He had expressed understanding and wished to proceed. PROCEDURE NOTE: Electronically Signed By: MALENA CHAVARRIA MD 01/19/23 1002 PATIENT NAME: MAREN ROE OPERATIVE REPORT DATE OF : 43 REPORT #: [id number] PHYSICIAN: MALENA CHAVARRIA MD PCP: KIRT LOERA MD REPORT IS CONFIDENTIAL AND NOT TO BE RELEASED WITHOUT AUTHORIZATION [facility] [address] [place], [place] [address] Signed Maren was taken into our endoscopy suite and placed in the left lateral decubitus position. He was given a total of 8 mg of Versed and 175 mcg of fentanyl to cover the case. A digital rectal exam was performed and he does have moderate sized circumferential external hemorrhoids. He had good sphincter tone. There were no masses. Prostate was not checked. The adult colonoscope was introduced and advanced under direct visualization of the camera. We found that he has a long redundant colon with angulation at about 55 cm. It took extra sedation and abdominal compression to get the scope through this area and finally up to the hepatic flexure. Finally, the scope went down to the cecum with a little additional sedation and compression we got it in the cecum itself. Overall, his prep was quite good. We used a little irrigation and suction for a couple of areas. We could see the ileocecal valve quite well coming into the cecum. We took a couple of biopsies along the edge of the ileocecal valve. The scope was then slowly withdrawn. We took pictures throughout for photodocumentation. We used a combination of the snare and hot biopsy forceps to remove the polyps in the distal right colon as well as in the proximal left colon at 105 cm. The polyp in the distal right colon is a bit difficult. Sitz along the edge back edge of the fold. We took off multiple pieces and cauterized the rest and injected a tattoo. The other polyp in the mid transverse colon was removed with the help of hot biopsy forceps. The scope was then slowly withdrawn down through his very long left redundant colon. Once in the rectum, the scope was retroflexed and again he has moderate-sized internal hemorrhoids. He had just a few shallow diverticula in the sigmoid colon. After this, the gas was suctioned out and the colonoscope removed. Maren tolerated the procedure quite well. RECOMMENDATIONS: I will see Maren back in my office in 7 to 14 days to review his results. We need to carefully assess the polyp in the distal right colon. He may need a shorter interval to reassess that area depending on pathology results. Malena Chavarria MD ALB/MODL /[id number] cc: MD Malena Walls MD Electronically Signed By: MALENA CHAVARRIA MD 01/19/23 1002 PATIENT NAME: MAREN ROE OPERATIVE REPORT DATE OF : 43 REPORT #: [id number] PHYSICIAN: MALENA CHAVARRIA MD PCP: KIRT LOEAR MD REPORT IS CONFIDENTIAL AND NOT TO BE RELEASED WITHOUT AUTHORIZATION [facility] [address] [place], [place] [address] Signed Copies: KIRT LOERA MD, ANDREW L MD ~ Electronically Signed By: MALENA CHAVARRIA MD 01/19/23 1002 PATIENT NAME: MAREN ROE SANG OPERATIVE REPORT DATE OF : 43 REPORT #: [id number] PHYSICIAN: MALENA CHAVARRIA MD PCP: KIRT LOERA MD REPORT IS CONFIDENTIAL AND NOT TO BE RELEASED WITHOUT AUTHORIZATION
--- NOTE | 2023-01-19 10:40 | NUR ---
PT ALERT, ORIENTED AND PT MENTIONED HE HAS HAD SCOPE BEFORE. PT'S IS WAITING TO TAKE PT HOME FOLLOWING DC. ALL QUESTIONS ASKED ANSWERED. PT REQUESTED PRAYER, WILL FOLLOW
--- NOTE | 2023-01-21 15:09 | PATH ---
[facility] [address] [place], [place] [address] Signed SPECIMEN(S): A ILEOCECAL VALVE BIOPSY SPECIMEN(S): B DISTAL ASCENDING/RIGHT COLON POLYP SPECIMEN(S): C MID TRANSVERSE COLON POLYP SPECIMEN(S): D PROX DESC/LEFT COLON POLYP AT 105 CM SPECIMEN SOURCE: A. ILEOCECAL VALVE BIOPSY B. DISTAL ASCENDING/RIGHT COLON POLYP C. MID TRANSVERSE COLON POLYP D. PROX DESC/LEFT COLON POLYP AT 105 CM CLINICAL HISTORY: Personal history of colon polyps, diverticulosis, internal/external hemorrhoids. Postop Dx: Minimal diverticulosis, polyps, long redundant colon, internal/external hemorrhoids. FINAL PATHOLOGIC DIAGNOSIS: A. Ileocecal valve biopsy: - Small bowel and colonic-type mucosa with prominent biopsy artifact, limiting the interpretation. - Negative for evidence of malignancy on these sections. B. Distal ascending / right colon polyp: - Tubular adenoma. C. Mid transverse colon polyp: - Tubular adenoma (two fragments). D. Proximal descending / left colon polyp at 105 cm: - Tubular adenoma (four fragments). JVR:smh:[id number] MICROSCOPIC EXAMINATION: Histologic sections of all submitted blocks are examined by light microscopy. These findings, together with the gross examination, support the pathologic diagnosis. GROSS DESCRIPTION: A. The specimen, labeled and designated "Lappen, ileocecal valve biopsy," is received in formalin and consists of two torres soft tissue fragments, ranging from 0.1-0.2 cm. Entirely submitted in (A1). B. The specimen, labeled and designated "Lappen, distal ascending colon polyp," is received in formalin and consists of one torres soft tissue fragment, 0.6 cm. Specimen is bisected and entirely PATIENT NAME: MAREN ROE PATHOLOGY DATE OF : 43 REPORT #: [id number] PHYSICIAN: LIA CARLSON PCP: KIRT LOERA MD REPORT IS CONFIDENTIAL AND NOT TO BE RELEASED WITHOUT AUTHORIZATION [facility] [address] [place], [place] [address] Signed submitted in (B1). C. The specimen, labeled and designated "Roberto, mid transverse colon polyp," is received in formalin and consists of two torres soft tissue fragments, ranging from 0.1-0.2 cm. Entirely submitted in (C1). D. The specimen, labeled and designated "Lappen, proximal descending colon polyp at 105 cm," is received in formalin and consists of four torres soft tissue fragments, ranging from 0.1-0.2 cm. Entirely submitted in (D1). JS (under the direct supervision of a pathologist) The Gross Description was prepared using a voice recognition system. The report was reviewed for accuracy; however, sound-alike word errors, addition and/or deletions may occur. If there is any question about this report, please contact Client Services. PERFORMING LABORATORY: The technical component was performed by [facility], [address] [place] [address] (CLIA# [id number]). Professional interpretation was performed by [facility] - [facility], [address] [place] [id number] (CLIA#: [id number]). Diagnostician: Maurizio Guzman MD Pathologist Electronically Signed 01/21/2023 Copies: ~ PATIENT NAME: MAREN ROE PATHOLOGY DATE OF : 43 REPORT #: [id number] PHYSICIAN: LIA CARLSON PCP: KIRT LOERA MD REPORT IS CONFIDENTIAL AND NOT TO BE RELEASED WITHOUT AUTHORIZATION
== END 2023-01-19 08:55 | disposition home or self-care (01) ==
LOC: OPS 06:19 → DS 06:19 → OPS 07:30 → DS 08:15 → OPS 08:15
PROVIDERS: ATTEND Colon & Rectal Surgery
PROC: 0DBG8ZX Excision of Left Large Intestine, Via Natural or Artificial Opening Endoscopic, Diagnostic (ICD-10-PCS; 2023-01-19)
PROC: 0DBL8ZX Excision of Transverse Colon, Via Natural or Artificial Opening Endoscopic, Diagnostic (ICD-10-PCS; 2023-01-19)
PROC: 0DBF8ZX Excision of Right Large Intestine, Via Natural or Artificial Opening Endoscopic, Diagnostic (ICD-10-PCS; 2023-01-19)
PROC: 3E0H8KZ Introduction of Other Diagnostic Substance into Lower GI, Via Natural or Artificial Opening Endoscopic (ICD-10-PCS; 2023-01-19)
PROC: 0DBC8ZX Excision of Ileocecal Valve, Via Natural or Artificial Opening Endoscopic, Diagnostic (ICD-10-PCS; principal; 2023-01-19 07:30)
DX: D12.2 Benign neoplasm of ascending colon (principal); D12.4 Benign neoplasm of descending colon; D12.3 Benign neoplasm of transverse colon; K57.30 Diverticulosis of large intestine without perforation or abscess without bleeding; Q43.8 Other specified congenital malformations of intestine; K64.0 First degree hemorrhoids; I25.10 Atherosclerotic heart disease of native coronary artery without angina pectoris; E78.00 Pure hypercholesterolemia, unspecified; I10 Essential (primary) hypertension; K21.9 Gastro-esophageal reflux disease without esophagitis; R01.1 Cardiac murmur, unspecified; Z86.010 Personal history of colon polyps; Z79.899 Other long term (current) drug therapy; Z79.82 Long term (current) use of aspirin; Z88.8 Allergy status to other drugs, medicaments and biological substances; Z91.048 Other nonmedicinal substance allergy status
CPT/HCPCS: 99153; G0500; J2250; J3010; J7121

== ENCOUNTER 2025-11-07 05:40 | Day surgery (SDC) | payer MEDICARE ==
[~2025-11-07] VITALS: Ht 172.7 cm; Wt 76.0 kg
[~2025-11-07 05:40] MED LIST changes: +FISH OIL 1,0001 EAC5 PO; -FISH OIL 1,0001 EAC6 PO
[2025-11-07 06:17] VITALS: BP 141/61
[2025-11-07] MEDS ORDERED: CEFAZOLIN SODIUM 2 GM in SODIUM CHLORIDE 0.9% 100 ML IV SCH (07:00)
[2025-11-07] MEDS ORDERED: SODIUM CHLORIDE 0.9% 100 ML IV ONE (07:05)
[2025-11-07] MEDS ORDERED: CEFAZOLIN SODIUM 2 GM VIAL ONE (07:05)
[2025-11-07] MEDS ORDERED: LIDOCAINE HCL 2% 5 ML SDV ONE (07:25)
[2025-11-07] MEDS ORDERED: fentaNYL citrate 100 MCG/2 ML VIAL ONE (07:25)
--- NOTE | 2025-11-07 08:26 | NUR ---
11/07/25 0826 Hannah Terry 0818-PATIENT ARRIVED TO PACU ON 6L MASK RR EVEN PATIENT AWAKE DENIES PAIN OR NAUSEA. SARAH DRAIN TO LOWER BACK SANGUINOUS DRAINAGE. SR HR 60'S. ORIENTED TO PACU 0825-PATIENT AWAKE DENIES PAIN OR NAUSEA. PLACED ON RA 100% RR EVEN. GLASSES PLACED ON PATIENT.
[2025-11-07 08:53] VITALS: BP 138/71
== END 2025-11-07 09:15 | disposition home or self-care (01) ==
LOC: OPS 05:40 → DS 05:40 → OPS 09:15 → DS 12:15 → OPS 12:15
PROVIDERS: ATTEND Surgery
PROC: 0JB70ZZ Excision of Back Subcutaneous Tissue and Fascia, Open Approach (ICD-10-PCS; principal; 2025-11-07 07:30)
DX: D17.1 Benign lipomatous neoplasm of skin and subcutaneous tissue of trunk (principal); I10 Essential (primary) hypertension; I25.10 Atherosclerotic heart disease of native coronary artery without angina pectoris; K21.9 Gastro-esophageal reflux disease without esophagitis; E78.00 Pure hypercholesterolemia, unspecified; N52.9 Male erectile dysfunction, unspecified; M17.11 Unilateral primary osteoarthritis, right knee; Z79.899 Other long term (current) drug therapy; Z88.8 Allergy status to other drugs, medicaments and biological substances; Z95.1 Presence of aortocoronary bypass graft
CPT/HCPCS: 00400; 88304; J0688; J2003; J2405; J2704; J3010